=== PATIENT | male | born 1945 | race Caucasian/White ===

== ENCOUNTER 2023-08-15 12:38 | Emergency (ER) | payer MEDICARE, OTHER, SELFPAY ==
[2023-08-15 12:40] VITALS: BP 133/68
[2023-08-15 12:44] VITALS: BP 141/122
[2023-08-15 12:45] VITALS: BP 133/68
[2023-08-15 12:52] VITALS: BMI 24.2
[2023-08-15 13:00] VITALS: BP 114/65
--- NOTE | 2023-08-15 13:53 | ED.GENMED ---
History of Present Illness
General
Chief Complaint: Male Genito-Urinary Symptoms
Source: patient and family
Time Seen by Provider: 08/15/23 13:25
Travel History
Have you had any contact with someone who has COVID-19?: No
Do you have any symptoms of coronavirus? Fever > 100 degrees, chills, cough, shortness of breath, sore throat, loss of taste or smell, muscle aches, or headache?: No
History of Present Illness
History of Present Illness:
78-year-old male with past medical history of PE, COPD, hyperlipidemia, status post suprapubic tube placement and chronic UTIs presenting the emergency department for evaluation after he was having reported bleeding from the tip of the penis
following suprapubic catheter change earlier today. EMS reports that the bleeding had subsided upon them bringing the patient to the emergency department. Patient states that he has no concerns at this time and otherwise feels well. Patient
denies any fevers or infectious symptoms, chest pain, shortness of breath or any other concerns at this time.
Past History
Past History
ED Past Medical History: COPD, Hypercholesterolemia, Other (Pulmonary embolism) and Other (Ulcerative colitis)
ED Past Surgical History: Bowel resection, Orthopedic and Urological
Social History
Tobacco: Non-smoker
Alcohol: None
Drug: None
Personal:
Living: with family
Review of Systems
Review of Systems
All Other Systems: ROS reviewed and negative except as documented in HPI and ROS
Phy Exam
Physical Exam
Physical Exam:
GENERAL: Alert , in no apparent distress, smiling and pleasant
EYE: clear conjunctiva b/l
HEAD: NCAT
ENT: o/p clr, mmm.
CARDIAC: Regular rate and rhythm .
LUNGS: Clear breath sounds bilaterally, no acute respiratory distress, no wheezes/rales/rhonchi
ABDOMEN: Soft, without focal tenderness, no r/g, no cvat, suprapubic tube in place without any surrounding bleeding, there is pink-tinged urine within the Langley bag however there is clear yellow urine within the tubing leading to the Langley bag.
Genitourinary: Moderate amount of blood with in the patient's diaper but this all appears dried and without any active bleeding. There is hypospadias and blood at the tip of the urethra however no active bleeding.
NEUROLOGICAL: Alert and oriented
SKIN: Warm and dry, skin intact.
MUSCULOSKELETAL: well perfused.
PSYCH: Normal and appropriate interaction.
Scores
Heart Failure Risk
Heart Failure Risk Score: Not Applicable
Heart Score for Chest Pain Patients
STEMI patient?: Not applicable
Withdrawal Assessment of Alcohol
Withdrawal Assessment Completed?: Not applicable
Course
Orders/Labs/Results
Orders:
Orders
08/15/23 13:58
Complete Blood Count/With Diff Urgent
Prothrombin Time Urgent
Abnormal Lab Results
08/15/23
13:58
WBC 11.1 H 10^3/uL
(4.8-10.8)
RBC 4.52 L 10^6/uL
(4.70-6.10)
Hgb 12.6 L g/dL
(13.0-18.0)
Hct 38.2 L %
(39.0-52.0)
RDW 14.7 H %
(11.5-14.5)
Abs Immat Gran (auto) 0.1 H 10^3/uL
(0-0.05)
Absolute Neuts (auto) 9.3 H 10^3/uL
(1.4-6.5)
Absolute Lymphs (auto) 1.0 L 10^3/uL
(1.2-3.4)
Absolute Monos (auto) 0.7 H 10^3/uL
(0.1-0.6)
Neutrophils % 83.2 H %
(42.2-75.2)
Lymphocytes % 9.2 L %
(20.5-51.1)
PT 17.6 H Sec
(11.4-14.6)
08/15/23 13:58
Vital Signs
Initial and Last Documented VS:
Initial Vital Signs
Temp Pulse Resp BP Pulse Ox
98.2 F 79 18 133/68 97
08/15/23 12:40 08/15/23 12:40 08/15/23 12:40 08/15/23 12:40 08/15/23 12:40
Last Documented Vital Signs
Temp Pulse Resp BP Pulse Ox
98.2 F 67 16 114/65 97
08/15/23 12:40 08/15/23 14:45 08/15/23 14:45 08/15/23 13:00 08/15/23 14:45
MDM/Problems Addressed
Differential Diagnosis Includes:
Supratherapeutic INR, bleeding secondary to catheter change, less likely infectious etiology
MDM/Problems Addressed:
78-year-old male present emergency department for evaluation after he experienced bleeding from the tip of his penis following a suprapubic catheter change. Patient is on Coumadin and is reportedly compliant with this. Patient unsure of last INR.
I spoke to patient's daughter who confirms history and states they were most concerned due to the amount of bleeding and the fact that patient is anticoagulated. I will check a hemoglobin and a INR prior to discharge. Patient not exhibiting any
signs of infection at this time and does not have any fevers.
Chronic conditions affecting care: Other (Chronic urinary tract infection/suprapubic catheter)
*Pulse Oximetry
Patient hypoxic: no
*Critical Care Note
Total Time (30-74mins, 75-104mins- exclusive of procedures): Not Applicable
Data Reviewed
Review of Other/Old Records Reveals: Records
Patient Management
Escalation/DeEscalation of care consider admission/obs:
Patient's lab work reassuring. Hemoglobin greater than 12 and INR is actually slightly subtherapeutic at 1.5. Patient's daughter notes that about 2 weeks ago patient's INR was too high so they have been changing his medication around a little bit.
Daughter put in a call to patient's urologist and they can follow-up as an outpatient as needed. Aware of return precautions to ER but otherwise stable for discharge home.
ED Attending Note
-
Portions of this chart may have been created with voice recognition software.� Occasional wrong word or��sound alike� substitutions may have occurred due to the inherent limitations of voice recognition software.
Discharge Plan
Departure
Patient Disposition: Home (Routine Discharge)
Date of Disposition: 08/15/23
Time of Disposition: 14:28
Patient with high blood pressure during this ER visit?: No
Discharge Problem:
Hematuria
Instructions: Blood in the Urine (Hematuria), Adult (DC)
Prescriptions:
No Action
cephalexin 500 MG capsule
500 mg PO BID Qty: 14 0RF
Referrals:
Ankita Amos CRNP [Family Provider] -
Interventions
Interventions:
*Risk Screen - Suicide Last Done: 08/15/23 12:40
*General Assessment Last Done: 08/15/23 12:40
*Neglect/Abuse Screening Last Done: 08/15/23 12:40
ED-Male Genitourinary Assessment Last Done: 08/15/23 12:55
[2023-08-15 14:09] LABS: % Basophils 0.5 % (0-2); % Eosinophils 0.7 % (0-6); % Immature Granulocytes 0.5 % (0-0.5); % Lymphocytes 9.2 % (20.5-51.1); % Monocytes 5.9 % (1.7-9.3); % Neutrophils 83.2 % (42.2-75.2); Absolute Basophils 0.1 10^3/uL (0-0.2); Absolute Eosinophils 0.1 10^3/uL (0-0.7); Absolute Immature Granulocytes 0.1 10^3/uL (0-0.05); Absolute Monocytes 0.7 10^3/uL (0.1-0.6); Absolute Neutrophils 9.3 10^3/uL (1.4-6.5); Hematocrit 38.2 % (39.0-52.0); Hemoglobin 12.6 g/dL (13.0-18.0); Mean Corpuscular Hgb 27.9 pg (27.0-31.0); Mean Corpuscular Volume 84.5 fL (80.0-94.0); Mean Platelet Volume 9.9 fL (7.4-10.4); Nucleated Red Blood Cells % 0 % (-); Platelet Count 186 10^3/uL (130-400); Red Blood Cell Count 4.52 10^6/uL (4.70-6.10); Red Cell Dist. Width 14.7 % (11.5-14.5); White Blood Cell Count 11.1 10^3/uL (4.8-10.8)
[2023-08-15 14:20] LABS: INR 1.46; PT 17.6 Sec (11.4-14.6)
== END 2023-08-15 16:01 | disposition home or self-care (01) ==
LOC: EMR 12:38
PROVIDERS: Physician Assistant Medical; EMERGENCY PHYSICIAN Emergency Medicine; FAMILY PHYSICIAN Nurse Practitioner Family
DX: R31.9 Hematuria, unspecified (principal); N39.0 Urinary tract infection, site not specified; Z79.01 Long term (current) use of anticoagulants
CPT/HCPCS: 99283; 85025; 85610

== ENCOUNTER 2023-08-16 01:55 | Inpatient (IN) | payer MEDICARE, OTHER, SELFPAY ==
[2023-08-15 22:10] VITALS: BP 103/58; BMI 23.9
[2023-08-15 22:12] VITALS: BP 103/58
[2023-08-15 22:27] LABS: % Basophils 0.4 % (0-2); % Eosinophils 0.7 % (0-6); % Immature Granulocytes 0.3 % (0-0.5); % Lymphocytes 12.4 % (20.5-51.1); % Monocytes 7.9 % (1.7-9.3); % Neutrophils 78.3 % (42.2-75.2); Absolute Eosinophils 0.1 10^3/uL (0-0.7); Absolute Lymphocytes 1.2 10^3/uL (1.2-3.4); Absolute Monocytes 0.7 10^3/uL (0.1-0.6); Absolute Neutrophils 7.3 10^3/uL (1.4-6.5); Hematocrit 35.6 % (39.0-52.0); Hemoglobin 11.9 g/dL (13.0-18.0); Mean Corp Hgb Conc. 33.4 g/dL (33.0-37.0); Mean Corpuscular Hgb 27.6 pg (27.0-31.0); Mean Corpuscular Volume 82.6 fL (80.0-94.0); Nucleated Red Blood Cells % 0 % (-); Platelet Count 196 10^3/uL (130-400); Red Blood Cell Count 4.31 10^6/uL (4.70-6.10); Red Cell Dist. Width 14.6 % (11.5-14.5); White Blood Cell Count 9.4 10^3/uL (4.8-10.8)
[2023-08-15 22:41] LABS: INR 1.55; PT 18.4 Sec (11.4-14.6)
[2023-08-15 22:44] LABS: ALT (SGPT) 19 U/L (0-50); AST (SGOT) 28 U/L (17-59); Albumin 3.7 g/dl (3.5-5.0); Alkaline Phosphatase 78 U/L (38-126); Blood Urea Nitrogen 34 mg/dl (9-20); Carbon Dioxide 25 mmol/L (22-30); Chloride 102 mmol/L (98-107); Estimated Creatinine Clearance 63 ml/min; Glucose 129 mg/dl (70-99); Potassium 4.6 mmol/L (3.5-5.1); Sodium 135 mmol/L (135-145); Total Bilirubin 0.9 mg/dl (0.2-1.3); Total Protein 6.3 g/dl (6.3-8.2); eGFR > 60.00
[2023-08-15 23:00] VITALS: BP 85/54
[2023-08-15 23:01] VITALS: BP 87/53
[2023-08-16] VITALS (16 sets, daily range): BP systolic 87–134; BP diastolic 48–80; BMI 22.5
[2023-08-16] MEDS: NSS 1000 IV ×3 (00:04→17:07)
--- NOTE | 2023-08-16 00:25 | ED.GENMED ---
History of Present Illness
General
Chief Complaint: Male Genito-Urinary Symptoms
Source: patient
Exam Limitations: none
Time Seen by Provider: 08/15/23 23:32
Nursing documentation reviewed up to this point in time: agreed with
Travel History
Have you had any contact with someone who has COVID-19?: No
Do you have any symptoms of coronavirus? Fever > 100 degrees, chills, cough, shortness of breath, sore throat, loss of taste or smell, muscle aches, or headache?: No
History of Present Illness
History of Present Illness:
78-year-old male presents emergency department complaining of syncope episode, and hematuria. He has a suprapubic catheter but was bleeding from his penis. When he stands he has bleeding.
Past History
Past History
ED Past Medical History: COPD, Hypercholesterolemia, Other (Pulmonary embolism) and Other (Ulcerative colitis)
ED Past Surgical History: Bowel resection, Orthopedic and Urological
Social History
Tobacco: Non-smoker
Alcohol: None
Drug: None
Personal:
Living: with family
Review of Systems
Review of Systems
Allergies reviewed?: Yes
All Other Systems: Not applicable
Constitutional: Reports no symptoms
EENT: Reports no symptoms
Respiratory: Reports no symptoms
Cardiac: Reports syncope
ABD/GI: Reports no symptoms
: Reports bleeding
Musculoskeletal: Reports no symptoms
Skin: Reports no symptoms
Neurological: Reports no symptoms
Endocrine: Reports no symptoms
Hematologic/Lymphatic: Reports no symptoms
Psychiatric: Reports no symptoms
Phy Exam
Physical Exam
Physical Exam:
Physical Exam
General: Blood pressure 87/53
Neck: supple. no meningeal signs. normal posterior pharynx
Heart: s1/s2 regular rate and rhythm, no murmur. equal radial
pulses.
HEENT: Pupils equal round reactive to light, EOMI
Lungs: no acute respiratory distress. clear bilaterally
Abdomen: normal bowel sounds. not tender. no CVAT, : suprapubic Langley catheter, dried blood at urethral meatus
Neuro: alert and oriented. no focal neurological deficits cranial nerves II through XII intact
Skin: no rash
Psychiatric: well kept. interactive and cooperative
Extremities: no edema. no calf tenderness. negative homans. good distal pulses
Course
Orders/Labs/Results
Orders:
Orders
08/15/23 22:14
Electrocardiogram (*1) Urgent
Reason for Study: Syncope
08/15/23 22:17
EKG- Treatment ONCE
08/15/23 22:21
Type+Screen Urgent
Complete Blood Count/With Diff Urgent
Comprehensive Metabolic Panel Urgent
PT/INR [Prothrombin Time] Urgent
08/16/23 00:01
0.9% Sodium Chloride 1000 ml [Nss] 1,000 ml IV BOLUS
Abnormal Lab Results
08/15/23
22:21
RBC 4.31 L 10^6/uL
(4.70-6.10)
Hgb 11.9 L g/dL
(13.0-18.0)
Hct 35.6 L %
(39.0-52.0)
RDW 14.6 H %
(11.5-14.5)
Absolute Neuts (auto) 7.3 H 10^3/uL
(1.4-6.5)
Absolute Monos (auto) 0.7 H 10^3/uL
(0.1-0.6)
Neutrophils % 78.3 H %
(42.2-75.2)
Lymphocytes % 12.4 L %
(20.5-51.1)
PT 18.4 H Sec
(11.4-14.6)
BUN 34 H mg/dl
(9-20)
Glucose 129 H mg/dl
(70-99)
08/15/23 22:21
08/15/23 22:21
Vital Signs
Initial and Last Documented VS:
Initial Vital Signs
Temp Pulse Resp BP Pulse Ox
97.7 F 83 16 103/58 99
08/15/23 22:10 08/15/23 22:10 08/15/23 22:10 08/15/23 22:10 08/15/23 22:10
Last Documented Vital Signs
Temp Pulse Resp BP Pulse Ox
97.7 F 74 16 87/53 94
08/15/23 22:10 08/15/23 23:45 08/15/23 23:45 08/15/23 23:01 08/15/23 23:45
MDM/Problems Addressed
Differential Diagnosis Includes:
Syncope, hematuria, dysrhythmia
MDM/Problems Addressed:
78-year-old male with hematuria, syncope, anticoagulation state. Discussed with Dr. Joe, who recommends n.p.o. and he will scope in a.m. Hold warfarin.
Chronic conditions affecting care: Other (Prior PE, suprapubic catheter)
Acute Exacerbation and/or Progression of Chronic Illness: Other (Anticoagulation, suprapubic catheter)
*Pulse Oximetry
Patient hypoxic: no
*EKG
Interpreted by ED Provider?: Yes
EKG Intrepretation Date: 08/16/23
EKG Intrepretation Time: :24
Interpretation: abnormal
Comparison EKG: no comparison EKG present
Heart Rate: 79
Rate: normal
Rhythm: sinus
[place]: left axis deviation
Interval: normal interval
QRS Pattern: right bundle branch block
Ischemia: no ischemia
*[employer] Interpretation
Rate: normal
Interpretation: normal
Heart Rate: 78
Rhythm: sinus
*Critical Care Note
Total Time (30-74mins, 75-104mins- exclusive of procedures): 30
comment:
Critical care statement: A total of 30 minutes of critical care time was provided for this patient. This includes management of unstable vital signs, evaluation of the patient at bedside, reviewing the patient's pertinent medical records, discussion
with consultants, review of old EKGs and review of pertinent medical records. This time with separate from time utilized to perform the aforementioned documented procedures
Data Reviewed
Review of Other/Old Records Reveals: Labs
Patient Management
Social determinants of health affecting care: Living situation
Discussion with other providers: Hospitalist and Restaurant Area Director (Urology Dr. Joe)
Escalation/DeEscalation of care consider admission/obs:
Admit indicated
ED Attending Note
-
Portions of this chart may have been created with voice recognition software.� Occasional wrong word or��sound alike� substitutions may have occurred due to the inherent limitations of voice recognition software.
Discharge Plan
Departure
Patient Disposition: Admit
Date of Disposition: 08/16/23
Time of Disposition: 00:30
Admit to: IMU
Presentation/result/management discussed w/ accepting MD/DO: Hospitalist
Patient with high blood pressure during this ER visit?: No
Condition: Fair
Discharge Problem:
Hematuria, Syncope
Prescriptions:
No Action
cephalexin 500 MG capsule
500 mg PO BID Qty: 14 0RF
Referrals:
Ankita Amos CRNP [Family Provider] -
Interventions
Interventions:
*Risk Screen - Suicide Last Done: 08/15/23 22:10
*General Assessment Last Done: 08/15/23 22:10
*Neglect/Abuse Screening Last Done: 08/15/23 22:10
*ED COVID-19 Vaccine History Last Done: 08/15/23 22:10
ED-Male Genitourinary Assessment Last Done: 08/15/23 23:07
--- NOTE | 2023-08-16 01:41 | HPS.HSE ---
Family Physician
-
Family Physician: Ankita Amos
Chief Complaint
-
Hematuria
History of Present Illness
Patient is a 78y M with PMH significant for COPD, cervical spinal stenosis and chronic SPC who presents to ED complaining of bleeding from the urethra. History obtained from patient and family at the bedside. Patient had monthly suprapubic
catheter change done today. VN reported that he had some bladder 'spasms' during the exchange. Daughter noted lack of urine output following the procedure and spoke with VN via phone. As directed, daughter deflated balloon and then re-inflated
the balloon. A singular clot was noted in the tubing, followed by return of clear urine. Shortly thereafter, patient noted blood in his diaper / coming from the urethra. Patient presented to the ED for further evaluation.
In the ED, there was no evidence of ongoing bleeding and labs, etc appeared unremarkable. Patient was discharged to home.
Shortly after his return home, he stood to go the bathroom and again noted passage of a large amount of blood from the urethra. Daughter notes that patient then became lightheaded and clammy and appeared that he might pass out. He did not lose
consciousness.
EMS was called and patient returned to the ED for further evaluation.
Patient now noted to be more hypotensive. He is currently resting comfortably in the ED.
Patient is on chronic anticoagulation for prior history of PE. His last dose of Coumadin was this evening.
Medical History
Past Medical History
Past Medical History: Reports Other
Additional Past Medical History:
COPD
History of DVT / PE
Cervical Spinal Stenosis
Ambulatory Dysfunction
Chronic Suprapubic Catheter
Ulcerative Colitis
Past Surgical History: Reports Other
Additional Past Surgical History:
Partial Bowel Resection
Cervical Spinal Fusion
SPC Placement
Social History
Tobacco: Former Smoker (Quit smoking 6 years ago. > 50 pack years total use.)
Alcohol: Occasional
Drug: None
Family History
Family History: Other (Father: Colon Cancer)
Allergies / Home Medications
Allergies reflects when Allergies were last updated in [facility].
Home Medications with original date entered in [facility]
Allergy/Medication List:
Allergies
Allergy/AdvReac Type Severity Reaction Status Date / Time
No Known Allergies Allergy Unverified 04/29/21 11:02
Home Medications
albuterol sulfate 2.5 mg/3 mL (0.083 %) solution for nebulization 2.5 mg inhalation BID 08/16/23
atorvastatin 40 mg tablet 40 mg PO DAILY 08/16/23
azithromycin 250 mg tablet 250 mg PO DAILY 08/16/23
baclofen 10 mg tablet 10 mg PO HS 08/16/23
baclofen 10 mg tablet 15 mg PO BID@0800,1200 08/16/23
baclofen 20 mg tablet 20 mg PO QPM 08/16/23
budesonide 0.5 mg/2 mL suspension for nebulization 0.5 mg inhalation BID 08/16/23
pantoprazole 40 mg tablet,delayed release 40 mg PO DAILY 08/16/23
tamsulosin 0.4 mg capsule 0.4 mg PO HS 08/16/23
warfarin 4 mg tablet 4 mg PO DAILY 08/16/23
Review of Systems
-
History Source: Patient and Family
A 12 point ROS was completed and negative except as noted: Yes
Constitutional: Reports Fatigue; Denies Fever or Chills
EENT: Denies Sore Throat
Respiratory: Denies Cough or Trouble Breathing
Cardiac: Denies Chest Pain or Palpitations
Abdomen/GI: Denies Abdominal Pain, Nausea, Vomiting or Diarrhea
: Reports Bleeding; Denies Dysuria
Musculoskeletal: Denies Joint Pain or Edema
Neurological: Reports Dizzy
Psych: Denies Depression or Anxiety
Physical Exam
Vital Signs
Vital Signs
Temp Pulse Resp BP Pulse Ox
97.7 F 69 15 91/53 96
08/15/23 22:10 02/24/24 01:00 08/16/23 01:00 08/16/23 01:00 08/16/23 01:00
Physical Exam
General: Other (78y M in no acute distress.)
HEENT: Moist mucous membranes and PERRLA
Respiratory: Other (Decreased bilaterally. No W/R/R.)
Cardiac: S1/S2 and Regular Rhythm; No Murmur
GI: Soft, Non Tender, Non Distended and Normal Bowel Sounds
Genito-urinary: Other (SPC in place with connie colored urine in device. Hypospadias with evidence of recent bleeding but no active bleeding.)
Musculoskeletal: No Clubbing, No Cyanosis and No Edema
Neuro: AO x 3
Laboratory Results
-
08/15/23 22:21
08/15/23 22:21
Laboratory Results
PT 18.4 Sec (11.4-14.6) H 08/15/23 22:21
INR 1.55 08/15/23 22:21
Total Bilirubin 0.9 mg/dl (0.2-1.3) 08/15/23 22:21
AST 28 U/L (17-59) 08/15/23 22:21
ALT 19 U/L (0-50) 08/15/23 22:21
Alkaline Phosphatase 78 U/L (38-126) 08/15/23 22:21
Impression/Plan
-
A/P: Patient is a 78y M with PMH significant for cervical stenosis, ambulatory dysfunction and chronic SPC who presents to ED for evaluation of bleeding from the urethra.
Urethral Bleeding
Chronic Suprapubic Catheter
Acute Blood Loss Anemia
Hypotension secondary to the above
- Admit for further evaluation and treatment.
- Continue IVF support for BP / hypovolemia.
- Follow H&H and consider transfusion if necessary.
- Transfusion +/- pressor support if needed to maintain perfusion / BP.
- Bleeding seems likely secondary to trauma from SPC placement / exchange. ? balloon inflated in proximal urethra based on description of events?
- Maintain current SPC ad flush as needed.
- Follow for any evidence of recurrent / continued bleeding from urethra. Seems to be position dependent and most evident when upright as in standing or seated.
- Urology evaluation for probable cystoscopy in the AM.
- Hold warfarin.
History of DVT / PE
DVT Prophylaxis
- Hold warfarin acutely given bleeding as noted above.
- INR = 1.55 with most recent dose of warfarin being late this evening.
- Follow daily INR. Resume warfarin after acute bleeding issues are definitively addressed.
- SCDs for now for prophylaxis.
COPD without Acute Exacerbation
- Stable. Continue budesonide BID and daily azithromycin.
- DuoNebs PRN.
Ulcerative Colitis
- Stable. Most recent flare was about 2 months ago.
- Not apparently on any maintenance medications.
- Follow for any new symptoms.
Cervical Spinal Stenosis
Ambulatory Dysfunction
- Stable. 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
- Continue usual baclofen regimen.
- PT / OT evaluations once hemodynamically stable.
Code Status: Full
--- NOTE | 2023-08-16 03:56 | CONS.URO ---
Consultation
-
Performing Provider: Michaelafer
Reason for Consultation: Hematuria
Medical History
History of Present Illness
78M known to urology at [place]
History of urinary retention and suprapubic tube placed about 1 year ago
AC on coumadin
Presented to the ER twice tonight for blood per meatus after his SPT was exchanged earlier today
Patient's daughter noted poor drainage and was instructed to reposition the baloon
After doing so he began to have bleeding from his urethra when standing
After first visit to ER this started again with reported large amount of blood
No prior issues with gross hematuria, bladder cancer, urethral bleding, pelvic pain
Past Medical History
Past Medical History: Other (COPD History of DVT / PE Cervical Spinal Stenosis Ambulatory Dysfunction Chronic Suprapubic Catheter Ulcerative Colitis)
Past Surgical History: Urological (Sp tube) and Other (Partial Bowel Resection Cervical Spinal Fusion)
Social History
Alcohol: Occasional
Drug: None
Allergies/Home Medications
Allergies
Allergy/AdvReac Type Severity Reaction Status Date / Time
No Known Allergies Allergy Unverified 04/29/21 11:02
Home Medications
Medication Instructions Recorded Confirmed Type
albuterol sulfate 2.5 mg/3 mL 2.5 mg inhalation BID 08/16/23 08/16/23 History
(0.083 %) solution for nebulization
atorvastatin 40 mg tablet 40 mg PO DAILY 08/16/23 08/16/23 History
azithromycin 250 mg tablet 250 mg PO DAILY 08/16/23 08/16/23 History
baclofen 10 mg tablet 10 mg PO HS 08/16/23 08/16/23 History
baclofen 10 mg tablet 15 mg PO BID@0800,1200 08/16/23 08/16/23 History
baclofen 20 mg tablet 20 mg PO QPM 08/16/23 08/16/23 History
budesonide 0.5 mg/2 mL suspension 0.5 mg inhalation BID 08/16/23 08/16/23 History
for nebulization
pantoprazole 40 mg tablet,delayed 40 mg PO DAILY 08/16/23 08/16/23 History
release
tamsulosin 0.4 mg capsule 0.4 mg PO HS 08/16/23 08/16/23 History
warfarin 4 mg tablet 4 mg PO DAILY 08/16/23 08/16/23 History
Physical Exam
Vital Signs
Vital Signs
Temp Pulse Resp BP Pulse Ox
97.7 F 74 16 107/57 95
08/15/23 22:10 08/16/23 03:00 08/16/23 03:00 08/16/23 03:00 08/16/23 03:00
Lab / Testing Results
Laboratory Results
08/15/23 22:21
08/15/23 22:21
Physical Exam
General: Well Developed, Well Nourished and No Apparent Distress
Respiratory: Clear and Non Labored Respirations
GI: Soft and Non Tender
Genito-urinary: Suprapubic Tube (14fr tube in place without significant hematuria) and Other (no active bleeding from urethral meatus. Meatus erosion from prior chronic bowens)
Neuro: Awake and Alert
Psych: Calm
Assessment / Plan
-
78M with sudden onset bleeding from urethra after routine suprapubic tube change
- Given timing and nature of bleeding, it is most likely the catheter balloon was inflated within the prostate during suprapubic tube change, causing poor drainage and subsequent bleeding when it was repositioned
- Hold warfarin
- Bedrest today. If bleeding remains minimal tomorrow, trial of ambulation to see if bleeding self-resolved
- If bleeding is persistent and does not stop spontaneously, will consider cystoscopy and fulguration
[2023-08-16 05:50] LABS: Hematocrit 30.5 % (39.0-52.0); Hemoglobin 10.3 g/dL (13.0-18.0); Mean Corp Hgb Conc. 33.8 g/dL (33.0-37.0); Mean Corpuscular Hgb 28.1 pg (27.0-31.0); Mean Corpuscular Volume 83.3 fL (80.0-94.0); Mean Platelet Volume 10.1 fL (7.4-10.4); Platelet Count 177 10^3/uL (130-400); Red Blood Cell Count 3.66 10^6/uL (4.70-6.10); Red Cell Dist. Width 14.8 % (11.5-14.5); White Blood Cell Count 6.7 10^3/uL (4.8-10.8)
[2023-08-16 05:59] LABS: INR 1.88; PT 21.5 Sec (11.4-14.6)
[2023-08-16 06:03] LABS: Blood Urea Nitrogen 32 mg/dl (9-20); Calcium 8.2 mg/dl (8.4-10.2); Carbon Dioxide 25 mmol/L (22-30); Chloride 108 mmol/L (98-107); Estimated Creatinine Clearance 71 ml/min; Glucose 100 mg/dl (70-99); Iron 27 ug/dl (49-181); Potassium 4.3 mmol/L (3.5-5.1); Sodium 135 mmol/L (135-145); eGFR > 60.00
[2023-08-16 06:11] LABS: Percent Saturation 9 % (20-50); Total Iron Binding Capacity 277 ug/dl (261-462)
[2023-08-16 06:38] LABS: Ferritin 29.2 ng/ml (17.9-464.0)
--- NOTE | 2023-08-16 07:37 | W.PN.HOSP.TC ---
Today's Communication/Plan
-
Monitor H&H
replet calcium
Vit D supplementation
bed rest as per Urology
Iron supplementation
Assessment / Plan
Assessment / Plan
Physical Exam
General: no acute distress appears comfortable at this time.
HEENT: Moist mucous membranes PERRLA hard of hearing
Respiratory: clear to auscultation bilateral no crackles wheezing rhonchi
Cardiac: S1/S2 and Regular Rhythm; No Murmur
GI: Soft, Non Tender, Non Distended and Normal Bowel Sounds
Genito-urinary: SPC in place with connie colored urine in device. Hypospadia
Musculoskeletal: No Clubbing, No Cyanosis and No Edema
Neuro: AO x 3
A/P:� Patient is a 78y M with PMH significant for cervical stenosis, ambulatory dysfunction and chronic SPC who presents� to ED for evaluation of bleeding from the urethra.
Urethral Bleeding
Chronic Suprapubic Catheter
Acute Blood Loss Anemia
Hypotension secondary to the above
�- Continue IVF support for BP / hypovolemia since resolved
�- Monitor H&H, transfuse goal Hgb>8 with concern active bleeding
�-Urology eval appreciated cont Hold warfarin, bedrest today, if bleeding minimal, trial ambulation tomorrow, if bleeding persists, possible cystoscopy and fulguration
History of DVT / PE
DVT Prophylaxis
�- Hold warfarin acutely given bleeding as noted above.
�- Daily INR.
�- SCDs for now for prophylaxis.
COPD without Acute Exacerbation
�- Stable.� Continue budesonide BID and daily azithromycin.
�- DuoNebs PRN.
Ulcerative Colitis
�- Stable.� Most recent flare was about 2 months ago.
�- Not apparently on any maintenance medications.
�- Follow for any new symptoms.
Cervical Spinal Stenosis
Ambulatory Dysfunction
�- Stable.� Chronic gait dysfunction secondary to prior cord compression / spasticity / etc.
�- Continue usual baclofen regimen.
�- PT / OT evaluations once hemodynamically stable.
Iron deficiency
Anemia of chronic disease
-IV iron supplementation
Hypocalcemia
-monitor and replete as necessary
Vit d deficiency
-Vit D supplementation started
Code Status:� Full
Regular Diet
Discussed with patient, her daughter, Urology, and nurse
I spent a total of 53 minutes with the patient or on the floor. More than 50% of this time involved counseling and coordination of care.
Anticipated Discharge: 24 - 48 hours
Subjective/Interval History
-
Date of Service: August 16, 2023
Seen and examined at bedside in no acute distress resting comfortably in bed. Denies any new acute issues at this time. Reports feeling well overall. Daughter Leida present during evaluation.
Objective Data
-
Labs:
Laboratory Results
08/15/23 08/16/23
22:21 05:38
WBC 9.4 6.7
Hgb 11.9 L 10.3 L
Hct 35.6 L 30.5 L
Plt Count 196 177
PT 18.4 H 21.5 H
INR 1.55 1.88
Sodium 135 135
Potassium 4.6 4.3
Chloride 102 108 H
Carbon Dioxide 25 25
BUN 34 H 32 H
Creatinine 0.9 0.8
Glucose 129 H 100 H
Calcium 9.0 8.2 L
Total Bilirubin 0.9
AST 28
ALT 19
Alkaline Phosphatase 78
Vital Signs:
Vital Signs
Temp Pulse Resp BP Pulse Ox
97.7 F 78 16 115/80 97
08/15/23 22:10 08/16/23 06:00 08/16/23 06:00 08/16/23 06:00 08/16/23 06:00
I&O
08/15/23 08/16/23 08/17/23
06:59 06:59 06:59
Output Total 450 / 450
Balance -450 / -450
[2023-08-16] MEDS: PULMICORT 0.5 MG INH ×2 (07:45→20:52)
[2023-08-16] MEDS: DUONEB 3 ML INH ×2 (07:46→18:00)
[2023-08-16] MEDS: LIORESAL 15 MG PO ×2 (08:31→11:48)
[2023-08-16] MEDS: PROTONIX 40 MG PO (08:32)
[2023-08-16] MEDS: ZITHROMAX 250 MG PO (08:32)
[2023-08-16] MEDS: LIPITOR 40 MG PO (08:32)
[2023-08-16 11:25] LABS: Vitamin D, 25-OH*** 16.2 ng/mL (30-80)
[2023-08-16] MEDS: OSCAL 500 + D 500 MG PO (11:47)
[2023-08-16] MEDS: FERRLECIT 110 MG IV (14:16)
--- NOTE | 2023-08-16 16:06 | PTCARENOTE ---
Pt presents as assessed. Aox3 and pleasant, [place]. NSR on tele monitor. VSS. Lungs clear and sats mid to high 90's on RA. Suprapubic tube draining yellow urine- no signs of bleeding noted. Pt ordered bedrest- Q2T maintained. IVF infusing as ordered.
Tolerating diet. Bed alarm in place for safety. Call fonseca within reach.
[2023-08-16] MEDS: LIORESAL 20 MG PO (17:07)
[2023-08-16] MEDS: FLOMAX 0.400000000000000022 MG PO (20:41)
[2023-08-17] VITALS (12 sets, daily range): BP systolic 88–153; BP diastolic 37–85
[2023-08-17] MEDS: NSS 1000 IV ×2 (01:41→11:47)
--- NOTE | 2023-08-17 03:22 | PTCARENOTE ---
Pt sleeping well overnight. Very pleasant. AAOx3. Denies pain or discomfort. SPT intact draining yellow urine. No bleeding noted. VSS. Afebrile. SR on CM. No change from earlier assessment. Need to continue to educate on turning schedule and
purpose. Pt more comfortable on his back. Skin intact. IVF's continue infusing as ordered. Call fonseca remains within reach. Will continue to monitor.
[2023-08-17 04:40] LABS: Hematocrit 25.8 % (39.0-52.0); Hemoglobin 8.7 g/dL (13.0-18.0); Mean Corp Hgb Conc. 33.7 g/dL (33.0-37.0); Mean Corpuscular Hgb 28.1 pg (27.0-31.0); Mean Corpuscular Volume 83.2 fL (80.0-94.0); Mean Platelet Volume 10.5 fL (7.4-10.4); Platelet Count 145 10^3/uL (130-400); Red Cell Dist. Width 15.2 % (11.5-14.5); White Blood Cell Count 5.3 10^3/uL (4.8-10.8)
[2023-08-17 04:57] LABS: INR 1.99; PT 22.5 Sec (11.4-14.6)
[2023-08-17 05:11] LABS: Blood Urea Nitrogen 19 mg/dl (9-20); Calcium 8.2 mg/dl (8.4-10.2); Carbon Dioxide 26 mmol/L (22-30); Chloride 108 mmol/L (98-107); Estimated Creatinine Clearance 93 ml/min; Glucose 97 mg/dl (70-99); Phosphorus 2.9 mg/dl (2.5-4.5); Potassium 4.1 mmol/L (3.5-5.1); Sodium 139 mmol/L (135-145); eGFR > 60.00
--- NOTE | 2023-08-17 07:20 | W.PN.HOSP.TC ---
Today's Communication/Plan
-
Monitor H&H, transfuse goal >7.5 d/t concern active bleeding
replete calcium
Iron supplementation
bed rest as per urology
NPO after midnight in case need for urologic intervention
cont hold warfarin
Assessment / Plan
Assessment / Plan
Physical Exam
General: no acute distress appears comfortable at this time.
HEENT: Moist mucous membranes PERRLA hard of hearing
Respiratory: clear to auscultation bilateral no crackles wheezing rhonchi
Cardiac: S1/S2 and Regular Rhythm; No Murmur
GI: Soft, Non Tender, Non Distended and Normal Bowel Sounds
Genito-urinary: SPC in place with connie colored urine in device. Hypospadia
Musculoskeletal: No Clubbing, No Cyanosis and No Edema
Neuro: AO x 3
A/P:� Patient is a 78y M with PMH significant for cervical stenosis, ambulatory dysfunction and chronic SPC who presents� to ED for evaluation of bleeding from the urethra.
Urethral Bleeding
Chronic Suprapubic Catheter
Acute Blood Loss Anemia
Hypotension secondary to the above
�- Continue IVF support for BP / hypovolemia since resolved
�- Monitor H&H, transfuse goal Hgb>7.5 with concern active bleeding
�-Urology eval appreciated cont Hold warfarin, cont bedrest, trial ambulation tomorrow, npo after midnight possible cystoscopy and fulguration if bleeding returns/worsens
History of DVT / PE
DVT Prophylaxis
�- Hold warfarin acutely given bleeding as noted above.
�- Daily INR.
�- SCDs for now for prophylaxis.
COPD without Acute Exacerbation
�- Stable.� Continue budesonide BID
�- DuoNebs PRN.
- Azithromycin discontinued, per patient/family no longer taking
Ulcerative Colitis
�- Stable.� Most recent flare was about 2 months ago.
�- Not apparently on any maintenance medications.
�- Follow for any new symptoms.
Cervical Spinal Stenosis
Ambulatory Dysfunction
�- Stable.� Chronic gait dysfunction secondary to prior cord compression / spasticity / etc.
�- Continue usual baclofen regimen.
�- PT / OT evaluations once hemodynamically stable.
Iron deficiency
Anemia of chronic disease
-IV iron supplementation
Hypocalcemia
-monitor and replete as necessary
Vit d deficiency
-Vit D supplementation started
Code Status:� Full
Regular Diet
Discussed with patient, her daughter, Urology, and nurse
I spent a total of 53 minutes with the patient or on the floor. More than 50% of this time involved counseling and coordination of care.
Anticipated Discharge: 24 - 48 hours
Subjective/Interval History
-
Date of Service: August 17, 2023
Seen and examined at bedside in no acute distress resting comfortably in bed. Hematuria resolved. Daughter Leida present during evaluation.
Objective Data
-
Labs:
Laboratory Results
08/17/23
04:30
WBC 5.3
Hgb 8.7 L
Hct 25.8 L
Plt Count 145
PT 22.5 H
INR 1.99
Sodium 139
Potassium 4.1
Chloride 108 H
Carbon Dioxide 26
BUN 19
Creatinine 0.6 L
Glucose 97
Calcium 8.2 L
Vital Signs:
Vital Signs
Temp Pulse Resp BP Pulse Ox
98.3 F 76 14 123/61 94
08/17/23 03:28 08/17/23 06:00 08/17/23 06:00 08/17/23 06:00 08/17/23 06:00
I&O
08/16/23 08/17/23 08/18/23
06:59 06:59 06:59
Intake Total 2930 / 2930
Output Total 450 / 450 2500 / 2500
Balance -450 / -450 430 / 430
[2023-08-17] MEDS: LIORESAL 15 MG PO ×2 (07:23→11:47)
[2023-08-17] MEDS: LIPITOR 40 MG PO (07:24)
[2023-08-17] MEDS: ZITHROMAX 250 MG PO (07:24)
[2023-08-17] MEDS: PROTONIX 40 MG PO (07:24)
[2023-08-17] MEDS: VITAMIN D3 (cholecalciferol) 25 MCG PO (07:25)
[2023-08-17] MEDS: PULMICORT 0.5 MG INH ×2 (08:27→20:49)
[2023-08-17] MEDS: DUONEB 3 ML INH (08:27)
--- NOTE | 2023-08-17 11:30 | W.PN.URO.CBU ---
Today's Communication / Plan
-
Continue observation
Ambulate tomorrow
NPO for possible procedure if significant bleeding persists
Assessment / Plan
-
78M with sudden onset bleeding from urethra after routine suprapubic tube change
- Given timing and nature of bleeding, it is most likely the catheter balloon was inflated within the prostate during suprapubic tube change, causing poor drainage and subsequent bleeding when it was repositioned
- Hold warfarin
- Bleeding mostly resolved - some minimal blood per nurse earlier this AM
- Bedrest today with trial of ambulation tomorrow
- If bleeding is persistent and does not stop spontaneously, will consider cystoscopy and fulguration
- NPO at MN in case procedure is necessary
Diagnosis
-
Date of Service: August 17, 2023
-
Patient Diagnosis:
Urethral bleeding
Chronic urinary retention
Post Op Day:
Subjective
-
small amount of urethral bleeding today per nurse
Objective
-
Vital Signs
Temp Pulse Resp BP Pulse Ox
98.4 F 88 18 123/61 95
08/17/23 07:30 08/17/23 08:30 08/17/23 08:30 08/17/23 06:00 08/17/23 08:30
Intake and Output
08/16/23 08/17/23 08/18/23
06:59 06:59 06:59
Intake Total 2930 / 2930
Output Total 450 / 450 2500 / 2500
Balance -450 / -450 430 / 430
Intake:
Oral fluids 780 / 780
IV fluids (Total) 2039
IV piggybacks 110 / 110
Output:
Suprapubic output 450 / 450 2500 / 2500
Laboratory Results
08/17/23 04:30
Physical Exam
-
General - well developed, well nourished, no acute distress
Chest - clear
Abdomen - soft, non-tender, SPT in place clear urine
Genitalia - no blood at meatus, no visible active bleeding
Skin - warm & dry with no rash
Neuro - AOx3, no motor deficits
Extremities - no clubbing, no cyanosis, no edema
[2023-08-17 11:50] LABS: Hematocrit 29.7 % (39.0-52.0)
[2023-08-17] MEDS: FERRLECIT 110 MG IV (14:21)
--- NOTE | 2023-08-17 16:41 | CM ---
CM reviewed medical records. CM met with patient in room. CM confirmed that patient lives with daughter in a two story home. Patient's bedroom is on the first floor, but he needs assistance navigating the stairs and uses a stair glide. Patient also
relies on a walker. Patient has had a history of placement in [facility] and then was transitioned to [facility]. Patient has also beed to [facility].
Patient is active with [facility] for SPC changes once a month. Referral sent via [facility] to [facility].
Patient is active with his PCP. Patient uses [facility] for medication services.
PLAN: Home with [facility]
[2023-08-17] MEDS: LIORESAL 20 MG PO (17:48)
[2023-08-17] MEDS: CALCIUM GLUCONATE 100 IV (17:48)
--- NOTE | 2023-08-17 19:00 | PTCARENOTE ---
report received from apolinar RN. walking rounds completed. Pt resting in bed, AAOX3. [place]. SR on telemetry heart rate 60-80s. pulses palpable. +1 edema in lower extremities. pt on room air, sat 94-96%. lung sounds clear. active bowel sounds, abodmen
round. pt reports has not had bowel movement since friday- attempted to have bowel movement on bedpan but unable. suprapubic catheter draining clear yellow urine. some old bloody drainage from meatus noted. see worklist for full nursing assessment.
pt updated on plan of care and to remain bedrest until am.
[2023-08-17] MEDS: FLOMAX 0.400000000000000022 MG PO (21:08)
[2023-08-18] VITALS (13 sets, daily range): BP systolic 83–135; BP diastolic 38–69; PULSE 90–127; O2SAT 94–95
[2023-08-18 04:38] LABS: Hematocrit 26.3 % (39.0-52.0); Hemoglobin 8.9 g/dL (13.0-18.0); Mean Corp Hgb Conc. 33.8 g/dL (33.0-37.0); Mean Corpuscular Hgb 28.3 pg (27.0-31.0); Mean Corpuscular Volume 83.5 fL (80.0-94.0); Mean Platelet Volume 10.3 fL (7.4-10.4); Platelet Count 143 10^3/uL (130-400); Red Blood Cell Count 3.15 10^6/uL (4.70-6.10); Red Cell Dist. Width 15.4 % (11.5-14.5); White Blood Cell Count 4.9 10^3/uL (4.8-10.8)
[2023-08-18 04:47] LABS: INR 1.72
[2023-08-18 04:55] LABS: Blood Urea Nitrogen 15 mg/dl (9-20); Calcium 8.3 mg/dl (8.4-10.2); Carbon Dioxide 26 mmol/L (22-30); Chloride 110 mmol/L (98-107); Estimated Creatinine Clearance 80 ml/min; Glucose 95 mg/dl (70-99); Magnesium 1.8 mg/dl (1.6-2.3); Phosphorus 3.2 mg/dl (2.5-4.5); Sodium 137 mmol/L (135-145); eGFR > 60.00
--- NOTE | 2023-08-18 06:50 | PTCARENOTE ---
urine clear yellow from suprapubic catheter throughout the night. no drainage from meatus noted.
[2023-08-18] MEDS: PULMICORT 0.5 MG INH ×2 (08:11→20:08)
[2023-08-18] MEDS: DUONEB 3 ML INH ×2 (08:11→20:08)
--- NOTE | 2023-08-18 09:04 | CM ---
Addendum entered by Kayce Marcum 08/18/23 17:08:
Patient accepted by [facility] for follow up in am.
Original Note:
Patient seen at bedside with physician. Patient stated that he lives with his daughter in a 2 story home and states that he has a wheelchair also in addition to the stair glide and walker. Patient has had [facility] in the past, [facility] is not current.
PT/OT in room to start assessment. CM will continue to follow for discharge planning needs.
Plan; home with VN vs SNF pending PT/OT recommendations
--- NOTE | 2023-08-18 09:10 | W.PN.URO.CBU ---
Today's Communication / Plan
-
trial of ambulation
NPO for possible cystoscopy
Assessment / Plan
-
78M with sudden onset bleeding from urethra after routine suprapubic tube change
- Given timing and nature of bleeding, it is most likely the catheter balloon was inflated within the prostate during suprapubic tube change, causing poor drainage and subsequent bleeding when it was repositioned
- Hold warfarin
- Bleeding mostly resolved - no episodes overnight
- Trial of ambulation today
- If bleeding restarts, will proceed with cystoscopy and fulguration
- NPO in case procedure is necessary this afternoon
Diagnosis
-
Date of Service: August 18, 2023
-
Patient Diagnosis:
Urethral bleeding
Chronic urinary retention
Post Op Day:
Subjective
-
No bleeding overnight
Has not ambulated yet
Objective
-
Vital Signs
Temp Pulse Resp BP Pulse Ox
97.9 F 75 18 113/56 94
08/18/23 07:56 08/18/23 08:14 08/18/23 08:14 08/18/23 06:00 08/18/23 08:14
Intake and Output
08/17/23 08/18/23 08/19/23
06:59 06:59 06:59
Intake Total 2930 / 2930
Output Total 2500 / 2500 3300 / 3300
Balance 430 / 430 -3300 / -3300
Intake:
Oral fluids 780 / 780
IV fluids (Total) 2039
IV piggybacks 110 / 110
Output:
Urine, [place] 850 / 850
Suprapubic output 2500 / 2500 2450 / 2450
Laboratory Results
08/18/23 04:25
02/26/24 04:25
Physical Exam
-
General - well developed, well nourished, no acute distress
Chest - clear
Abdomen - soft, non-tender, SPT in place
Genitalia - no blood per meatus
Skin - warm & dry with no rash
Extremities -no edema
[2023-08-18] MEDS: LIORESAL 15 MG PO ×2 (09:16→11:09)
[2023-08-18] MEDS: PROTONIX 40 MG PO (09:16)
[2023-08-18] MEDS: LIPITOR 40 MG PO (09:16)
[2023-08-18] MEDS: VITAMIN D3 (cholecalciferol) 25 MCG PO (09:16)
--- NOTE | 2023-08-18 09:19 | W.PN.HOSP.TC ---
Today's Communication/Plan
-
ambulation and follow bleeding as per urology
transfer out of IMU
Assessment / Plan
Assessment / Plan
pt is a 78 year old male
Acute Blood Loss Anemia due to Urethral Bleeding with Chronic Suprapubic Catheter and subsequent hypotension--has not needed blood transfusion so far--HGB did drop from 12.6 (admission) to 8.9 (currently)--apprec urology--coumadin on hold--ambulate
today
History of DVT/PE/DVT Prophylaxis-�- Hold warfarin acutely given bleeding as noted above- Daily INR�- SCDs for now for prophylaxis.
COPD without Acute Exacerbation�- Stable.� Continue budesonide BID�- DuoNebs PRN- Azithromycin discontinued, per patient/family no longer taking
Ulcerative Colitis- Stable.� Most recent flare was about 2 months ago- Not apparently on any maintenance medications-- Follow for any new symptoms.
Cervical Spinal Stenosis/Ambulatory Dysfunction�- Stable--Chronic gait dysfunction secondary to prior cord compression/spasticity/etc--Continue usual baclofen regimen-- PT/OT evaluations once hemodynamically stable.
Iron deficiency with Anemia of chronic disease--IV iron supplementation
Hypocalcemia--monitor and replete as necessary
Vit D deficiency---Vit D supplementation started
Code Status:� Full
Anticipated Discharge: Within 24 hours
Subjective/Interval History
-
Date of Service: August 18, 2023
pt says urine clear but hasn't gotten up yet
Objective Data
-
Labs:
Laboratory Results
08/18/23
04:25
WBC 4.9
Hgb 8.9 L
Hct 26.3 L
Plt Count 143
PT 20.0 H
INR 1.72
Sodium 137
Potassium 4.0
Chloride 110 H
Carbon Dioxide 26
BUN 15
Creatinine 0.7
Glucose 95
Calcium 8.3 L
Vital Signs:
max temp for 24 hours
08/17/23
19:46
Temp 98.8 F
Vital Signs
Temp Pulse Resp BP Pulse Ox
97.9 F 75 18 113/56 94
08/18/23 07:56 08/18/23 08:14 08/18/23 08:14 08/18/23 06:00 08/18/23 08:14
I&O
08/17/23 08/18/23 08/19/23
06:59 06:59 06:59
Intake Total 2930 / 2930
Output Total 2500 / 2500 3300 / 3300
Balance 430 / 430 -3300 / -3300
Review of Systems
-
All other systems: Reviewed and negative
Physical Exam
-
General: Well Developed, Well Nourished and No Apparent Distress
HEENT: Normocephalic and Atraumatic
Respiratory: Clear to Auscultation; Negative Wheezes or Rhonchi
Cardiac: Regular Rhythm, S1/S2 and Murmur
GI: Soft, Nontender, Normal Bowel Sounds and Distended
Genito-urinary: Clear Urine and Supra Pubic Tube
Musculoskeletal: No Clubbing, No Cyanosis and No Edema
Neuro: Awake and Alert
--- NOTE | 2023-08-18 09:39 | PTCARENOTE ---
pt aaox3. states no pain or sob. states he is hungry and wants to eat. explained plan for npo incase of procedure. pt understands. suprapubic tube in place draining clear yellow. very small amt of serosanguineous drainage noted from meatus of
penis. p/t ambulated in room with pt and is now oob in chair. no bleeding noted
[2023-08-18] MEDS: COLACE 100 MG PO (11:09)
--- NOTE | 2023-08-18 17:22 | PTCARENOTE ---
pt oob to commode formed bowel movement. brb noted on floor and toilet seat from pt penis. Dr Joe notified. ordered for pt to be npo after midnight for poss scope. pt made aware.
[2023-08-18] MEDS: LIORESAL 20 MG PO (18:18)
[2023-08-18] MEDS: FLOMAX 0.400000000000000022 MG PO (19:52)
[2023-08-19] VITALS (19 sets, daily range): BP systolic 89–132; BP diastolic 49–78
--- NOTE | 2023-08-19 00:05 | PTCARENOTE ---
Received pt at start of shift. aaox3, pleasant. Denies pain. Suprapubic cath in place, draining yellow urine with some clots. Penis not actively bleeding but dried blood around it like it may be leaking slowly. VSS. NSR. BLE edema which patient
states is his normal. Daughter Leida updated on phone about changes today and plan for cysto tomorrow. Stated she will call back in the AM for a procedure time.
Pt transferred/downgraded to 3W. Report given. pt stable.
--- NOTE | 2023-08-19 00:23 | PTCARENOTE ---
pt received from IMU with belongings at bedside, hearing aids placed on bench examiner. pt corine, aaox3, VSS, placed on machine steak tenderizer - NSR. suprapubic catheter site c/d/i, draining connie urine. dried blood noted on pt's meatus, no signs of active
bleeding. abdomen firm, bowel sounds present. pt educated on being NPO, verbalizes understanding. pt oriented to room, call fonseca in reach
[2023-08-19 05:41] LABS: Hematocrit 27.5 % (39.0-52.0); Hemoglobin 9.1 g/dL (13.0-18.0); Mean Corp Hgb Conc. 33.1 g/dL (33.0-37.0); Mean Corpuscular Hgb 27.7 pg (27.0-31.0); Mean Corpuscular Volume 83.6 fL (80.0-94.0); Mean Platelet Volume 10.5 fL (7.4-10.4); Platelet Count 152 10^3/uL (130-400); Red Blood Cell Count 3.29 10^6/uL (4.70-6.10); Red Cell Dist. Width 15.4 % (11.5-14.5); White Blood Cell Count 4.5 10^3/uL (4.8-10.8)
[2023-08-19 05:55] LABS: INR 1.43; PT 17.3 Sec (11.4-14.6)
[2023-08-19 06:16] LABS: Blood Urea Nitrogen 14 mg/dl (9-20); Calcium 8.2 mg/dl (8.4-10.2); Carbon Dioxide 27 mmol/L (22-30); Chloride 109 mmol/L (98-107); Estimated Creatinine Clearance 80 ml/min; Glucose 89 mg/dl (70-99); Phosphorus 3.1 mg/dl (2.5-4.5); Potassium 3.9 mmol/L (3.5-5.1); Sodium 136 mmol/L (135-145); eGFR > 60.00
[2023-08-19] MEDS: PULMICORT 0.5 MG INH ×2 (07:55→19:50)
--- NOTE | 2023-08-19 08:06 | W.PN.HOSP.TC ---
Today's Communication/Plan
-
OR today
Assessment / Plan
Assessment / Plan
pt is a 78 year old male
Acute Blood Loss Anemia due to Urethral Bleeding with Chronic Suprapubic Catheter and subsequent hypotension--has not needed blood transfusion so far--HGB did drop from 12.6 (admission) to 8.9 (currently)--apprec urology--coumadin on hold--did well
with ambulation but had bleeding with having a bowel movement--for OR today
History of DVT/PE/DVT Prophylaxis-�- Holding warfarin acutely given bleeding as noted above- Daily INR�- SCDs for now for prophylaxis.
COPD without Acute Exacerbation�- Stable.� Continue budesonide BID�- DuoNebs PRN- Azithromycin discontinued, per patient/family no longer taking
Ulcerative Colitis- Stable.� Most recent flare was about 2 months ago- Not apparently on any maintenance medications-- Follow for any new symptoms.
Cervical Spinal Stenosis/Ambulatory Dysfunction�- Stable--Chronic gait dysfunction secondary to prior cord compression/spasticity/etc--Continue usual baclofen regimen-- PT/OT evaluations once hemodynamically stable.
Iron deficiency with Anemia of chronic disease--IV iron supplementation
Hypocalcemia--monitor and replete as necessary
Vit D deficiency---Vit D supplementation started
Code Status:� Full
Anticipated Discharge: 24 - 48 hours
Subjective/Interval History
-
Date of Service: August 19, 2023
informed by patient that he is going to the OR
Objective Data
-
Labs:
Laboratory Results
08/19/23
05:09
WBC 4.5 L
Hgb 9.1 L
Hct 27.5 L
Plt Count 152
PT 17.3 H
INR 1.43
Sodium 136
Potassium 3.9
Chloride 109 H
Carbon Dioxide 27
BUN 14
Creatinine 0.7
Glucose 89
Calcium 8.2 L
Vital Signs:
max temp for 24 hours
08/18/23
19:34
Temp 98.5 F
Vital Signs
Temp Pulse Resp BP Pulse Ox
97.9 F 82 16 127/63 94
08/19/23 08:00 08/19/23 08:00 08/19/23 08:00 08/19/23 08:00 08/19/23 08:00
I&O
08/18/23 08/19/23 08/20/23
06:59 06:59 06:59
Intake Total 360 / 360
Output Total 3300 / 3300 950 / 950
Balance -3300 / -3300 -590 / -590
Review of Systems
-
All other systems: Reviewed and negative
Physical Exam
-
General: Well Developed, Well Nourished and No Apparent Distress
HEENT: Normocephalic and Atraumatic; Negative Oxygen
Respiratory: Clear to Auscultation; Negative Wheezes or Rhonchi
Cardiac: Regular Rhythm, S1/S2 and Murmur
GI: Soft, Nontender, Normal Bowel Sounds and Distended
Genito-urinary: Clear Urine and Supra Pubic Tube
Musculoskeletal: No Clubbing, No Cyanosis and No Edema
Neuro: Awake
Psych: Calm
[2023-08-19] MEDS: LIORESAL 15 MG PO ×2 (09:06→12:13)
[2023-08-19] MEDS: PROTONIX 40 MG PO (09:06)
[2023-08-19] MEDS: VITAMIN D3 (cholecalciferol) 25 MCG PO (09:07)
[2023-08-19] MEDS: LIPITOR 40 MG PO (09:07)
--- NOTE | 2023-08-19 10:08 | W.PN.URO.CBU ---
Today's Communication / Plan
-
OR today
Assessment / Plan
-
78M with sudden onset bleeding from urethra after routine suprapubic tube change
- Given timing and nature of bleeding, it is most likely the catheter balloon was inflated within the prostate during suprapubic tube change, causing poor drainage and subsequent bleeding when it was repositioned
- Hold warfarin
- NPO for OR today - cystoscopy and fulguration
Diagnosis
-
Date of Service: August 19, 2023
-
Patient Diagnosis:
Urethral bleeding
Chronic urinary retention
Post Op Day:
Subjective
-
some episodes of mild bleeding yesterday
Objective
-
Vital Signs
Temp Pulse Resp BP Pulse Ox
97.9 F 82 16 127/63 94
08/19/23 08:00 08/19/23 08:00 08/19/23 08:00 08/19/23 08:00 08/19/23 08:00
Intake and Output
08/18/23 08/19/23 08/20/23
06:59 06:59 06:59
Intake Total 360 / 360
Output Total 3300 / 3300 950 / 950
Balance -3300 / -3300 -590 / -590
Intake:
Oral fluids 360 / 360
Output:
Urine, [place] 850 / 850
Suprapubic output 2450 / 2450 950 / 950
Laboratory Results
08/19/23 05:09
08/19/23 05:09
Physical Exam
-
General - well developed, well nourished, no acute distress
Chest - clear
Abdomen - soft, non-tender
- no acute urethral bleed
Skin - warm & dry with no rash
Neuro - AOx3, no motor deficits
--- NOTE | 2023-08-19 17:24 | W.IMMPOSTOP ---
Surgical Immed Post Op Note
-
Primary Surgeon: Peffer
Assisting Surgeon: none
Pre-op Diagnosis: Urethral trauma, hematuria
Post-op Diagnosis: same
Procedure Performed: cystoscopy, fulguration of traumatic urethral bleeding
Anesthesia Type:
Specimen / Cultures:
Estimated Blood Loss:
Complications:
Operative Findings:
large defect in bulbar urethra from catheter balloon trauma
spongy tissue not very amenable to fulguration, but reasonable hemostasis obtained
22Fr [place] placed per urethral
Stenotic SPT tract revised and dilated, 18Fr [place] catheter placed
[2023-08-19] MEDS: LIORESAL 20 MG PO (18:43)
[2023-08-19] MEDS: DUONEB 3 ML INH (19:50)
[2023-08-19] MEDS: TYLENOL 650 MG PO (20:11)
[2023-08-19] MEDS: FLOMAX 0.400000000000000022 MG PO (20:11)
[2023-08-20] VITALS (7 sets, daily range): BP systolic 94–117; BP diastolic 51–59
[2023-08-20 05:41] LABS: Hematocrit 28.9 % (39.0-52.0); Hemoglobin 9.5 g/dL (13.0-18.0); Mean Corp Hgb Conc. 32.9 g/dL (33.0-37.0); Mean Corpuscular Volume 85.3 fL (80.0-94.0); Mean Platelet Volume 10.6 fL (7.4-10.4); Platelet Count 172 10^3/uL (130-400); Red Blood Cell Count 3.39 10^6/uL (4.70-6.10); Red Cell Dist. Width 15.2 % (11.5-14.5); White Blood Cell Count 7.2 10^3/uL (4.8-10.8)
[2023-08-20 05:53] LABS: INR 1.33; PT 16.6 Sec (11.4-14.6)
[2023-08-20 06:14] LABS: Blood Urea Nitrogen 21 mg/dl (9-20); Calcium 8.5 mg/dl (8.4-10.2); Carbon Dioxide 29 mmol/L (22-30); Chloride 104 mmol/L (98-107); Estimated Creatinine Clearance 70 ml/min; Glucose 141 mg/dl (70-99); Magnesium 2.2 mg/dl (1.6-2.3); Phosphorus 3.2 mg/dl (2.5-4.5); Potassium 4.6 mmol/L (3.5-5.1); Sodium 139 mmol/L (135-145); eGFR > 60.00
--- NOTE | 2023-08-20 06:25 | PTCARENOTE ---
Gauze around pt's penis and pad underneath pt changed this morning - soiled with small amount of bright red bloody drainage. Suprapubic catheter draining bloody urine overnight, free of clots, put out approx 400mL. Gauze around suprapubic catheter
site clean dry and intact, dried bloody drainage noted around catheter site. Pt offers complaints of tenderness around catheter site, relieved with Tylenol (refer to MAR).
Plan of care ongoing.
[2023-08-20] MEDS: TYLENOL 650 MG PO (06:33)
[2023-08-20] MEDS: DUONEB 3 ML INH ×2 (07:38→20:40)
[2023-08-20] MEDS: PULMICORT 0.5 MG INH ×2 (07:39→20:40)
[2023-08-20] MEDS: LIORESAL 15 MG PO ×2 (08:59→12:57)
[2023-08-20] MEDS: PROTONIX 40 MG PO (08:59)
[2023-08-20] MEDS: VITAMIN D3 (cholecalciferol) 25 MCG PO (08:59)
[2023-08-20] MEDS: LIPITOR 40 MG PO (08:59)
--- NOTE | 2023-08-20 09:23 | W.PN.URO.CBU ---
Today's Communication / Plan
-
Hold warfarin
Observation
Outpatient follow up for catheter management
Assessment / Plan
-
78M with sudden onset bleeding from urethra after routine suprapubic tube change
- now s/p OR 08/19 for cystoscopy, fulguration of bulbar urethral trauma, suprpubic tube revision
- Spongy urethral tissue was not very amenable to fulguration, however hemostasis was improved. Suspect he will continue to have some intermittent urethral bleeding while he is healing.
- Hold warfarin for additional 2 weeks if risk profile is acceptable
- Outpatient follow up for urethral catheter removal in about 1 week
- Maintain suprapubic tube
Diagnosis
-
Date of Service: August 20, 2023
-
Patient Diagnosis:
Urethral bleeding
Chronic urinary retention
Post Op Day: s/p cystoscopy, fulguration, SPT revision 08/19
Subjective
-
minimal urethral bleeding overnight
no pain
Objective
-
Vital Signs
Temp Pulse Resp BP Pulse Ox
99.0 F 80 16 104/54 98
08/20/23 07:00 08/20/23 07:39 08/20/23 07:39 08/20/23 07:00 08/20/23 07:39
Intake and Output
08/19/23 08/20/23 08/21/23
06:59 06:59 06:59
Intake Total 360 / 360 355 / 355
Output Total 950 / 950 1829 / 1829
Balance -590 / -590 -1475 / -1475
Intake:
Oral fluids 360 / 360 255 / 255
IV fluids (Total) 100 / 100
Norm 100 / 100
Output:
Suprapubic output 950 / 950 1829 / 1829
Laboratory Results
08/20/23 05:09
08/20/23 05:09
Physical Exam
-
General - well developed, well nourished, no acute distress
Chest - clear bilaterally
Abdomen - soft, non-tender
Genitalia - minimal blood per meatus, SPT in place, light pink urine
Skin - warm & dry with no rash
Neuro - AOx3, no motor deficits
Extremities - no clubbing
--- NOTE | 2023-08-20 10:16 | PN.CDI ---
CDI
- -
CDI:
Physician Documentation Request
Admit Date: 08/16/23 01:55
Dear Doctor Cristina
Patient presented to ED ' complaining of syncope episode, and hematuria. He has a suprapubic catheter but was bleeding from his penis.'
Warfarin was held.
Urology states 'large defect in bulbar urethra from catheter balloon trauma'
Please clarify if a relationship exist between these conditions:
Yes, bleeding is exacerbated by warfarin.
No, bleeding is not exacerbated by warfarin.
Unable to determine
Use of terms such as suspected, likely, concern for, or probable (associated with a specific diagnosis that is being evaluated, monitored, or treated as if it exists) are acceptable and can be coded in the inpatient setting, when documented at the
time of discharge.
Thank you,
Brenda Adames RN, BSN
CDI Specialist
tiger text
Please use your independent medical judgment in providing your response.
--- NOTE | 2023-08-20 12:31 | W.PN.HOSP.TC ---
Today's Communication/Plan
-
cont off coumadin
PT/OT
Assessment / Plan
Assessment / Plan
pt is a 78 year old male
Acute Blood Loss Anemia due to Urethral Bleeding with Chronic Suprapubic Catheter and subsequent hypotension--has not needed blood transfusion so far--HGB did drop from 12.6 (admission) to 9.5 (currently)--apprec urology--coumadin on hold--did well
with ambulation but had bleeding with having a bowel movement--s/p OR 08/19/23--will re-order PT/OT
History of DVT/PE in 2016 /DVT Prophylaxis-�- Holding warfarin acutely given bleeding as noted above- Daily INR�- SCDs for now for prophylaxis--patient has no history of stroke, no history of atrial fibrillation, no recurrent episodes of
DVT/pulmonary embolism, no history of genetic issues such as antiphospholipid antibody syndrome, Antithrombin III deficiency, protein C or S deficiency, etc.--- therefore, I do not believe he needs long-term anticoagulation at this poin-- Urology
would like to have him off of Coumadin at least 2 weeks--but as I believe, I do not think he needs long-term treatment
COPD without Acute Exacerbation�- Stable.� Continue budesonide BID�- DuoNebs PRN- Azithromycin discontinued, per patient/family no longer taking
Ulcerative Colitis- Stable.� Most recent flare was about 2 months ago- Not apparently on any maintenance medications-- Follow for any new symptoms.
Cervical Spinal Stenosis/Ambulatory Dysfunction�- Stable--Chronic gait dysfunction secondary to prior cord compression/spasticity/etc--Continue usual baclofen regimen-- PT/OT evaluations once hemodynamically stable.
Iron deficiency with Anemia of chronic disease--IV iron supplementation
Hypocalcemia--monitor and replete as necessary
Vit D deficiency---Vit D supplementation started
Code Status:� Full
Anticipated Discharge: Within 24 hours
Subjective/Interval History
-
Date of Service: August 20, 2023
pt doing well postop
Objective Data
-
Labs:
Laboratory Results
08/20/23
05:09
WBC 7.2
Hgb 9.5 L
Hct 28.9 L
Plt Count 172
PT 16.6 H
INR 1.33
Sodium 139
Potassium 4.6
Chloride 104
Carbon Dioxide 29
BUN 21 H
Creatinine 0.8
Glucose 141 H
Calcium 8.5
Vital Signs:
max temp for 24 hours
08/20/23
11:00
Temp 99.4 F
Vital Signs
Temp Pulse Resp BP Pulse Ox
99.4 F 56 18 94/51 94
08/20/23 11:00 08/20/23 11:00 08/20/23 11:00 08/20/23 11:00 08/20/23 11:00
I&O
08/19/23 08/20/23 08/21/23
06:59 06:59 06:59
Intake Total 360 / 360 355 / 355
Output Total 950 / 950 1830 / 1830
Balance -590 / -590 -1475 / -1475
Review of Systems
-
All other systems: Reviewed and negative
Physical Exam
-
General: Well Developed, Well Nourished and No Apparent Distress
HEENT: Normocephalic and Atraumatic
Respiratory: Clear to Auscultation; Negative Wheezes or Rhonchi
Cardiac: Regular Rhythm and S1/S2; Negative Murmur
GI: Soft, Nontender, Nondistended and Normal Bowel Sounds
Genito-urinary: Supra Pubic Tube (chronic)
Musculoskeletal: No Clubbing, No Cyanosis and No Edema
Neuro: Awake
--- NOTE | 2023-08-20 12:33 | CM ---
Patient seen at bedside with physician. Yelena VN to follow at discharge. CM updated daughter and she is requiring patient be seen at bedside with PT/OT prior to discharge. CM will review with physician. Patient needs to be able to get in and out
of bed. CM will continue to follow for discharge planning needs.
Plan; home with Yelena vs SNF
[2023-08-20] MEDS: LIORESAL 20 MG PO (18:02)
[2023-08-20] MEDS: FLOMAX 0.400000000000000022 MG PO (21:12)
[2023-08-21 03:45] VITALS: BP 93/51
[2023-08-21 05:44] LABS: Hematocrit 26.8 % (39.0-52.0); Hemoglobin 8.9 g/dL (13.0-18.0); Mean Corp Hgb Conc. 33.2 g/dL (33.0-37.0); Mean Corpuscular Hgb 28.3 pg (27.0-31.0); Mean Corpuscular Volume 85.4 fL (80.0-94.0); Mean Platelet Volume 10.3 fL (7.4-10.4); Platelet Count 160 10^3/uL (130-400); Red Blood Cell Count 3.14 10^6/uL (4.70-6.10); Red Cell Dist. Width 15.8 % (11.5-14.5); White Blood Cell Count 6.5 10^3/uL (4.8-10.8)
[2023-08-21 06:13] LABS: Blood Urea Nitrogen 21 mg/dl (9-20); Calcium 8.5 mg/dl (8.4-10.2); Carbon Dioxide 29 mmol/L (22-30); Chloride 105 mmol/L (98-107); Estimated Creatinine Clearance 80 ml/min; Glucose 96 mg/dl (70-99); Magnesium 2.1 mg/dl (1.6-2.3); Phosphorus 3.2 mg/dl (2.5-4.5); Potassium 4.1 mmol/L (3.5-5.1); Sodium 137 mmol/L (135-145); eGFR > 60.00
[2023-08-21 06:18] LABS: PT 16.2 Sec (11.4-14.6)
[2023-08-21 07:00] VITALS: BP 123/66
[2023-08-21] MEDS: PULMICORT 0.5 MG INH (07:28)
[2023-08-21] MEDS: DUONEB 3 ML INH (07:29)
[2023-08-21] MEDS: LIPITOR 40 MG PO (07:46)
[2023-08-21] MEDS: VITAMIN D3 (cholecalciferol) 25 MCG PO (07:46)
[2023-08-21] MEDS: LIORESAL 15 MG PO (07:46)
[2023-08-21] MEDS: PROTONIX 40 MG PO (07:47)
[2023-08-21 11:00] VITALS: BP 117/63
--- NOTE | 2023-08-21 11:27 | W.PN.HOSP.TC ---
Today's Communication/Plan
-
d/c
Assessment / Plan
Assessment / Plan
pt is a 78 year old male
Acute Blood Loss Anemia due to Urethral Bleeding with Chronic Suprapubic Catheter and subsequent hypotension exacerbated by coumadin--has not needed blood transfusion so far--HGB did drop from 12.6 (admission) to 9.5 (currently)--apprec
urology--coumadin on hold--did well with ambulation but had bleeding with having a bowel movement--s/p OR 08/19/23
History of DVT/PE in 2016 /DVT Prophylaxis-�- Holding warfarin acutely given bleeding as noted above- Daily INR�- SCDs for now for prophylaxis--patient has no history of stroke, no history of atrial fibrillation, no recurrent episodes of
DVT/pulmonary embolism, no history of genetic issues such as antiphospholipid antibody syndrome, Antithrombin III deficiency, protein C or S deficiency, etc.--- therefore, I do not believe he needs long-term anticoagulation at this poin-- Urology
would like to have him off of Coumadin at least 2 weeks--but as I believe, I do not think he needs long-term treatment
COPD without Acute Exacerbation�- Stable.� Continue budesonide BID�- DuoNebs PRN- Azithromycin discontinued, per patient/family no longer taking
Ulcerative Colitis- Stable.� Most recent flare was about 2 months ago- Not apparently on any maintenance medications-- Follow for any new symptoms.
Cervical Spinal Stenosis/Ambulatory Dysfunction�- Stable--Chronic gait dysfunction secondary to prior cord compression/spasticity/etc--Continue usual baclofen regimen-- PT/OT evaluations once hemodynamically stable.
Iron deficiency with Anemia of chronic disease--IV iron supplementation
Hypocalcemia--monitor and replete as necessary
Vit D deficiency---Vit D supplementation started
Code Status:� Full
Anticipated Discharge: Today
Subjective/Interval History
-
Date of Service: August 21, 2023
pt doing well--ok for d/c
Objective Data
-
Labs:
Laboratory Results
08/21/23
05:19
WBC 6.5
Hgb 8.9 L
Hct 26.8 L
Plt Count 160
PT 16.2 H
INR 1.30
Sodium 137
Potassium 4.1
Chloride 105
Carbon Dioxide 29
BUN 21 H
Creatinine 0.7
Glucose 96
Calcium 8.5
Vital Signs:
max temp for 24 hours
08/20/23
11:00
Temp 99.4 F
Vital Signs
Temp Pulse Resp BP Pulse Ox
98.0 F 71 16 123/66 95
08/21/23 07:00 08/21/23 07:29 08/21/23 07:29 08/21/23 07:00 08/21/23 07:29
I&O
08/20/23 08/21/23 08/22/23
06:59 06:59 06:59
Intake Total 355 / 355 360 / 360
Output Total 1830 / 1830 1800 / 1800
Balance -1475 / -1475 -1440 / -1440
Review of Systems
-
All other systems: Reviewed and negative
Physical Exam
-
General: Well Developed, Well Nourished and No Apparent Distress
HEENT: Normocephalic and Atraumatic
Respiratory: Clear to Auscultation; Negative Wheezes or Rhonchi
Cardiac: Regular Rhythm and S1/S2; Negative Murmur
GI: Soft, Nontender, Nondistended and Normal Bowel Sounds
Genito-urinary: Clear Urine and Supra Pubic Tube
Musculoskeletal: No Clubbing, No Cyanosis and No Edema
Neuro: Awake
Psych: Calm
--- NOTE | 2023-08-21 11:46 | CM ---
Patient seen at bedside, Patient daughter to transport patient home. Yelena to follow at discharge. CM will review IMM with patient to sign. CM will continue to follow for discharge planning needs.
Plan; home with yelena to follow
[2023-08-21] MEDS: MIRALAX 17 GRAMS PO (11:57)
--- NOTE | 2023-08-22 07:19 | W.DCSUMMARY ---
Discharge Summary
Discharge Data
Date of Admission: 08/16/23
Date of Discharge: 08/21/23
-
Pending Results: No
Hospital Course
Primary care physician : Leticia Amos
Principal Discharge diagnosis : Acute blood loss anemia due to urethral bleeding with chronic suprapubic catheter exacerbated by Coumadin
Chronic Discharge diagnosis : History of deep venous thrombosis/pulmonary embolism in 2016, chronic obstructive pulmonary disease without exacerbation, ulcerative colitis, cervical spinal stenosis with ambulatory dysfunction, iron deficiency with
anemia of chronic disease, hypocalcemia, vitamin D deficiency
Hospital Course : Patient is a 78-year-old male who complained of bleeding from the urethra. Patient had monthly suprapubic catheter change on the day of admission. VN reported he had bladder spasms during the exchange. Patient's daughter noted
lack of urine output following the procedure and spoke with visiting nurses by phone. Daughter deflated the balloon and then reinflated the balloon at their direction. A singular clot was noted in the tubing followed by return of clear urine.
Shortly thereafter the patient noted blood in his diaper coming from the urethra. Patient came to the emergency department. Workup in the emergency department showed him to have no evidence of bleeding and the patient was discharged home. After
his return home, he stood to go the bathroom and again passed a large amount of blood from the urethra. Patient then became lightheaded and clammy but did not lose consciousness. He returned to the emergency department. On arrival he was more
hypotensive and the patient was admitted.
Problem #1: Acute blood loss anemia due to urethral bleeding along with chronic suprapubic catheter which all were exacerbated by Coumadin. Patient was admitted and seen in consultation by urology. There thought was that given the timing and
nature of the bleeding, catheter balloon was likely inflated within the prostate during the suprapubic tube change causing poor drainage followed by subsequent bleeding. His warfarin was on hold. Patient was placed on bedrest and monitored for
recurrent bleeding. Plans were for the operating room on August 18 but the patient had no further bleeding and they were canceled. Later that evening, patient had a bowel movement and did pass significant amounts of blood from his urethra. He
was made n.p.o. and was taken to the operating room on August 19. Operative findings revealed a large defect in the bulbar urethra from catheter balloon trauma. Reasonable hemostasis was obtained. Patient was watched and followed and did not
have any further bleeding. Recommendations by urology were to continue him off anticoagulation for at least 2 weeks.
In regards to his anticoagulation, patient has a history of deep venous thrombosis and pulmonary embolism in 2016. I spoke with the patient in depth. He denied any history of stroke, atrial fibrillation, recurrent episodes of DVT/pulmonary
embolism, no history of genetic issues or required issues such as antiphospholipid antibody syndrome, Antithrombin III deficiency, protein C or protein S deficiency. Therefore I do not believe that he needs long-term anticoagulation. I did speak
with urology regarding my finding as well as the patient and the patient's daughter. I did however states that if there is something that I am unaware of that his primary care physician knows more about and that long-term anticoagulation is
required; that they should speak with the primary care physician from that standpoint. Otherwise, I have recommended indefinitely stopping his anticoagulation.
Problem #2: All other medical issues. These include History of deep venous thrombosis/pulmonary embolism in 2016, chronic obstructive pulmonary disease without exacerbation, ulcerative colitis, cervical spinal stenosis with ambulatory dysfunction,
iron deficiency with anemia of chronic disease, hypocalcemia, vitamin D deficiency. These medical issues were stable during his hospitalization. Medications were continued as able.
Patient was seen in consultation by physical therapy and Occupational Therapy and is stable for discharge home at this time. If there are any questions regarding this dictation or his hospital stay, please not hesitate to call. Our office number
is [phone].
Time for discharge 31 minutes.
Procedure findings :
Operative Findings:�
large defect in bulbar urethra from catheter balloon trauma
spongy tissue not very amenable to fulguration, but reasonable hemostasis obtained
22Fr [place] placed per urethral
Stenotic SPT tract revised and dilated, 18Fr [place] catheter placed
Discharge Plan
-
Patient Disposition: Home with Home Care
Discharge Diagnosis/Procedures: Acute blood loss anemia due to urethral bleeding from chronic suprapubic catheter and subsequent hypotension, history of deep venous thrombosis/pulmonary embolism, chronic obstructive pulmonary disease without acute
exacerbation, ulcerative colitis, cervical spine stenosis/ambulatory dysfunction, iron deficiency with anemia of chronic disease, hypocalcemia, vitamin D deficiency
Condition: Good
Diet: As tolerated and Regular
Activity: As tolerated
Driving Restrictions: As prior to admission
Bathing Restrictions: None
Other Services: VN, PT and OT
Referrals:
Ankita Amos CRNP [Family Provider] - in less than 1 week
Chris Joe MD [Active] - in two weeks
Prescriptions:
New
cholecalciferol (vitamin D3) 25 mcg (1,000 unit) Tablet
25 mcg PO DAILY Qty: 0 0RF
Continued
atorvastatin 40 mg Tablet
40 mg PO DAILY
albuterol sulfate 2.5 mg /3 mL (0.083 %) Solution For Nebulization
2.5 mg INHALATION BID
baclofen 20 mg Tablet
20 mg PO QPM
tamsulosin 0.4 mg Capsule
0.4 mg PO HS
baclofen 10 mg Tablet
15 mg PO BID@0800,1200
baclofen 10 mg Tablet
10 mg PO HS
pantoprazole 40 mg Tablet,Delayed Release (Dr/Ec)
40 mg PO DAILY
budesonide 0.5 mg/2 mL Suspension For Nebulization
0.5 mg INHALATION BID
Held
warfarin 4 mg Tablet
4 mg PO QPM
Hold Instructions: I do not believe that you need Coumadin/warfarin moving forward--please discuss this with your prescribing doctor
Discontinued
azithromycin 250 mg Tablet
250 mg PO DAILY
Discharge Orders:
Discharge Patient (As Directed); Ordered 08/21/23
Ordered By: Nayana Evans
Discharge Date and Time
Discharge Date/Time: 08/21/23 13:58
== END 2023-08-21 13:58 | disposition home health service (06) | DRG 663 ==
LOC: 3 WEST ACU 01:55
PROVIDERS: Internal Medicine; Student in an Organized Health Care Education/Training Program; ADMITTING PHYSICIAN Hospitalist; ATTENDING PHYSICIAN Internal Medicine; CONSULT PHYSICIAN Urology; EMERGENCY PHYSICIAN Emergency Medicine; FAMILY PHYSICIAN Nurse Practitioner Family
PROC: 0T2BX0Z Change Drainage Device in Bladder, External Approach (ICD-10-PCS; 2023-08-19)
PROC: 0W3R8ZZ Control Bleeding in Genitourinary Tract, Via Natural or Artificial Opening Endoscopic (ICD-10-PCS; 2023-08-19)
DX: T83.83XA Hemorrhage due to genitourinary prosthetic devices, implants and grafts, initial encounter (principal); D62 Acute posthemorrhagic anemia; K51.90 Ulcerative colitis, unspecified, without complications; S37.30XA Unspecified injury of urethra, initial encounter; D68.32 Hemorrhagic disorder due to extrinsic circulating anticoagulants; Z87.891 Personal history of nicotine dependence; N36.8 Other specified disorders of urethra; Z93.59 Other cystostomy status; I95.9 Hypotension, unspecified; J44.9 Chronic obstructive pulmonary disease, unspecified; M48.02 Spinal stenosis, cervical region; Y65.8 Other specified misadventures during surgical and medical care; D63.8 Anemia in other chronic diseases classified elsewhere; E83.51 Hypocalcemia; R33.9 Retention of urine, unspecified; Z86.718 Personal history of other venous thrombosis and embolism
CPT/HCPCS: 80048; 80053; 82306; 82728; 83540; 83550; 83735; 84100; 85014; 85018; 85025; 85027; 85610; 86850; 86900; 86901; 90662; 90677; 93005; 94640; 96360; 96361; 97162; 97164; 97166; 99291; C1758; C1769; G0008; G0009; J2916

== ENCOUNTER 2023-09-07 17:04 | Emergency (ER) | payer MEDICARE, OTHER, SELFPAY ==
[2023-09-07 17:12] VITALS: BMI 23.7
[2023-09-07 17:14] VITALS: BP 121/89
[2023-09-07 17:24] VITALS: BP 133/64
[2023-09-07 17:29] LABS: % Basophils 0.3 % (0-2); % Eosinophils 0.3 % (0-6); % Immature Granulocytes 0.4 % (0-0.5); % Lymphocytes 8.1 % (20.5-51.1); % Neutrophils 84.9 % (42.2-75.2); Absolute Immature Granulocytes 0.1 10^3/uL (0-0.05); Absolute Monocytes 0.7 10^3/uL (0.1-0.6); Absolute Neutrophils 10.3 10^3/uL (1.4-6.5); Hematocrit 34.4 % (39.0-52.0); Hemoglobin 11.3 g/dL (13.0-18.0); Mean Corp Hgb Conc. 32.8 g/dL (33.0-37.0); Mean Corpuscular Hgb 27.1 pg (27.0-31.0); Mean Corpuscular Volume 82.5 fL (80.0-94.0); Mean Platelet Volume 9.5 fL (7.4-10.4); Nucleated Red Blood Cells % 0 % (-); Platelet Count 368 10^3/uL (130-400); Red Blood Cell Count 4.17 10^6/uL (4.70-6.10); Red Cell Dist. Width 14.6 % (11.5-14.5); White Blood Cell Count 12.2 10^3/uL (4.8-10.8)
[2023-09-07 17:47] LABS: ALT (SGPT) 21 U/L (0-50); AST (SGOT) 25 U/L (17-59); Alkaline Phosphatase 124 U/L (38-126); Blood Urea Nitrogen 19 mg/dl (9-20); Carbon Dioxide 27 mmol/L (22-30); Chloride 99 mmol/L (98-107); Estimated Creatinine Clearance 81 ml/min; Glucose 116 mg/dl (70-99); Sodium 136 mmol/L (135-145); Total Bilirubin 0.8 mg/dl (0.2-1.3); Total Protein 6.8 g/dl (6.3-8.2); eGFR > 60.00
[2023-09-07 18:00] VITALS: BP 113/58
[2023-09-07] MEDS: MORPHINE SULFATE 2 MG IV (18:12)
[2023-09-07] MEDS: NSS 500 IV (18:12)
[2023-09-07 18:38] LABS: D-Dimer 1.82 ug/mlFEU (0.00-0.50)
--- NOTE | 2023-09-07 18:45 | EDRN ---
D-Dimer came back elevated, provider notified by this RN
[2023-09-07 19:28] VITALS: BP 126/80
[2023-09-07] MEDS: OMNIPAQUE 50 ML PO (19:28)
[2023-09-07] MEDS: ZOFRAN 4 MG IV (19:57)
[2023-09-07 20:00] VITALS: BP 146/73
--- NOTE | 2023-09-07 20:08 | ED.GENMED ---
History of Present Illness
General
Chief Complaint: Abdominal Pain
Source: patient
Exam Limitations: none
Time Seen by Provider: 09/07/23 17:26
Nursing documentation reviewed up to this point in time: agreed with
Travel History
Have you had any contact with someone who has COVID-19?: No
Do you have any symptoms of coronavirus? Fever > 100 degrees, chills, cough, shortness of breath, sore throat, loss of taste or smell, muscle aches, or headache?: No
History of Present Illness
History of Present Illness:
Patient presents ED secondary to sudden onset of abdominal pain starting this afternoon, along with inability to have bowel movements over the past 10 days. Denies fever or chills. Denies trauma. Denies vomiting. Denies diarrhea. Denies recent
change in medications or diet. Abdominal pain described as sharp, diffuse, without any alleviating or exacerbating factors. Patient does have history of IBS, which has caused irregular bowel habits in the past.
Past History
Past History
ED Past Medical History: COPD, Hypercholesterolemia, Other (Pulmonary embolism) and Other (Ulcerative colitis)
ED Past Surgical History: Bowel resection, Orthopedic and Urological
Social History
Tobacco: Non-smoker
Alcohol: None
Drug: None
Personal:
Living: with family
Review of Systems
Review of Systems
Allergies reviewed?: Yes
All Other Systems: ROS reviewed and negative except as documented in HPI and ROS
Constitutional: Reports no symptoms; Denies fever
Respiratory: Reports no symptoms
Cardiac: Reports no symptoms
ABD/GI: Reports abdominal pain and constipated; Denies nausea, vomiting or diarrhea
: Reports no symptoms
Musculoskeletal: Reports no symptoms
Skin: Reports no symptoms
Neurological: Reports no symptoms
Phy Exam
Physical Exam
Physical Exam:
Physical Exam
General: mild distress, not acutely ill. afebrile.
Head: nc/at. eomi
Neck: supple. no meningeal signs.
Heart: s1/s2 regular rate and rhythm, no murmur. equal radial pulses.
Lungs: no acute respiratory distress. clear bilaterally
Abdomen: mild distention noted with diffuse tenderness to palpation.
Neuro: alert and oriented. no focal neurological deficits
Skin: no rash
Psychiatric: well kept. interactive and cooperative
Extremities: no edema. no calf tenderness.
Course
Orders/Labs/Results
Orders:
Orders
09/07/23 17:20
CMP [Comprehensive Metabolic Panel] Urgent
Complete Blood Count/With Diff Urgent
09/07/23 18:04
0.9% Sodium Chloride 500 ml [Nss] 500 ml IV BOLUS
Morphine Sulfate 2 mg IV NOW STA
CR Obstruct Series W/pa Chest Urgent
Comment:
Reason For Exam: abdominal pain w distention
09/07/23 18:11
D-Dimer Urgent
09/07/23 18:58
Iohexol [Omnipaque] See Protocol PO NOW STA
09/07/23 18:59
CT Abd/pel W Iv And Oral Contr Urgent
Comment:
Reason For Exam: abdominal pain w distention
09/07/23 19:53
Ondansetron Injectable [Zofran] 4 mg .ROUTE .STK-MED ONE
09/07/23 19:57
Ondansetron Injectable [Zofran] 4 mg IV NOW STA
09/07/23 21:45
Phosphate Enema [Fleet Phosphate Enema-Adult] 135 ml RECTAL NOW STA
Abnormal Lab Results
09/07/23 09/07/23
17:20 18:11
WBC 12.2 H 10^3/uL
(4.8-10.8)
RBC 4.17 L 10^6/uL
(4.70-6.10)
Hgb 11.3 L g/dL
(13.0-18.0)
Hct 34.4 L %
(39.0-52.0)
MCHC 32.8 L g/dL
(33.0-37.0)
RDW 14.6 H %
(11.5-14.5)
Abs Immat Gran (auto) 0.1 H 10^3/uL
(0-0.05)
Absolute Neuts (auto) 10.3 H 10^3/uL
(1.4-6.5)
Absolute Lymphs (auto) 1.0 L 10^3/uL
(1.2-3.4)
Absolute Monos (auto) 0.7 H 10^3/uL
(0.1-0.6)
Neutrophils % 84.9 H %
(42.2-75.2)
Lymphocytes % 8.1 L %
(20.5-51.1)
D-Dimer 1.82 H ug/mlFEU
(0.00-0.50)
Glucose 116 H mg/dl
(70-99)
09/07/23 17:20
09/07/23 17:20
Vital Signs
Initial and Last Documented VS:
Initial Vital Signs
Temp Pulse Resp BP Pulse Ox
98.2 F 87 18 121/89 98
09/07/23 17:14 09/07/23 17:14 09/07/23 17:14 09/07/23 17:14 09/07/23 17:14
Last Documented Vital Signs
Temp Pulse Resp BP Pulse Ox
98.2 F 87 18 101/54 94
09/07/23 17:14 09/07/23 23:00 09/07/23 23:00 09/07/23 21:00 09/07/23 21:45
MDM/Problems Addressed
MDM/Problems Addressed:
Patient disimpacted and subsequently had spontaneous large volume of soft stool, with significant improvement symptoms. Patient will be discharged home in stable condition, to the care of her daughter, with recommendation to continue bowel regimen
at home along with PCP follow-up as an outpatient.
*Critical Care Note
Total Time (30-74mins, 75-104mins- exclusive of procedures): Not Applicable
ED Attending Note
-
Portions of this chart may have been created with voice recognition software.� Occasional wrong word or��sound alike� substitutions may have occurred due to the inherent limitations of voice recognition software.
Discharge Plan
Departure
Patient Disposition: Home (Routine Discharge)
Date of Disposition: 09/07/23
Time of Disposition: 22:27
Patient with high blood pressure during this ER visit?: Yes
Discharge Problem:
Constipation
Instructions: Constipation, Adult (DC)
Prescriptions:
No Action
atorvastatin 40 mg Tablet
40 mg PO DAILY
albuterol sulfate 2.5 mg /3 mL (0.083 %) Solution For Nebulization
2.5 mg INHALATION BID
warfarin 4 mg Tablet
4 mg PO QPM
Hold Instructions: I do not believe that you need Coumadin/warfarin moving forward--please discuss this with your prescribing doctor
Rx Instructions:
THE PATIENT HAS NOT TAKEN THIS MEDICATION
baclofen 20 mg Tablet
20 mg PO QPM
tamsulosin 0.4 mg Capsule
0.4 mg PO HS
baclofen 10 mg Tablet
15 mg PO BID@0800,1200
baclofen 10 mg Tablet
10 mg PO HS
pantoprazole 40 mg Tablet,Delayed Release (Dr/Ec)
40 mg PO DAILY
budesonide 0.5 mg/2 mL Suspension For Nebulization
0.5 mg INHALATION BID
cholecalciferol (vitamin D3) 25 mcg (1,000 unit) Tablet
25 mcg PO DAILY Qty: 0 0RF
Referrals:
Ankita Amos CRNP [Family Provider] -
Activity Restrictions/Additional Instructions:
As discussed, please follow-up with your primary care physician for further evaluation and treatment.
Interventions
Interventions:
*Risk Screen - Suicide Last Done: 09/07/23 17:08
*General Assessment Last Done: 09/07/23 17:08
*Neglect/Abuse Screening Last Done: 09/07/23 17:08
ED- Fall Risk Assessment Last Done: 09/07/23 17:23
*ED COVID-19 Vaccine History Last Done: 09/07/23 17:12
*Nursing Disposition Last Done: 09/07/23 23:21
KJ-Vzmtis-Frunsjhshz Assessment Last Done: 09/07/23 17:23
Discharge Date and Time
Discharge Date/Time: 09/07/23 23:23
[2023-09-07 21:00] VITALS: BP 101/54
== END 2023-09-07 23:23 | disposition home or self-care (01) ==
LOC: EMR 17:04
PROVIDERS: Emergency Medicine; EMERGENCY PHYSICIAN Emergency Medicine; FAMILY PHYSICIAN Nurse Practitioner Family
DX: K59.00 Constipation, unspecified (principal); R10.9 Unspecified abdominal pain; R03.0 Elevated blood-pressure reading, without diagnosis of hypertension; K58.9 Irritable bowel syndrome, unspecified; J44.9 Chronic obstructive pulmonary disease, unspecified; E78.00 Pure hypercholesterolemia, unspecified; K51.90 Ulcerative colitis, unspecified, without complications; Z79.01 Long term (current) use of anticoagulants; Z86.711 Personal history of pulmonary embolism; Z98.1 Arthrodesis status; Z98.0 Intestinal bypass and anastomosis status
CPT/HCPCS: 99285; 96374; 96375; 96361; 74022; 74177; 80053; 85025; 85379; Q9967

== ENCOUNTER 2025-05-27 10:52 | Inpatient (IN) | payer MEDICARE, SELFPAY ==
[2025-05-26 17:12] VITALS: BP 152/78
--- NOTE | 2025-05-26 17:16 | ED.GENMED ---
History of Present Illness
General
Chief Complaint: Breathing Problem
Time Seen by Provider: 05/26/25 17:09
History of Present Illness
History of Present Illness:
Patient presents to the emergency department with cough, general fatigue and chills. Symptoms have been worsening over the past week. He has a history of COPD, not on home O2. Family with multiple sick contacts after a cruise. No cp. +chills
yesterday
Past History
Past History
ED Past Medical History: COPD, Hypercholesterolemia, Other (Pulmonary embolism) and Other (Ulcerative colitis)
ED Past Surgical History: Bowel resection, Orthopedic and Urological
Social History
Tobacco: Non-smoker
Alcohol: None
Drug: None
Personal:
Living: with family
Phy Exam
Physical Exam
Physical Exam:
GENERAL APPEARANCE: Chronically ill-appearing
EYES lids/conjunctiva normal
EARS/NOSE/THROAT Mucous membranes moist, uvula midline without oral pharyngeal erythema, exudate or swelling
HEAD/NECK normocephalic atraumatic, neck is supple.
RESPIRATORY rhonchorous bilaterally present. Expiratory wheezing bilaterally. Diminished breath sounds on the left
CARDIAC Regular rate and rhythm, no edema.
ABDOMINAL Soft, ND/NT.
MUSCLES/EXTREMITIES chronic venous stasis changes to lower extremities bilaterally
SKIN Warm, pink and dry. No rashes
NEUROLOGICAL Speech is clear and appropriate. Normal level of consciousness. 5/5 strength in all extremities.
PSYCH Normal mood and affect. Judgement/competence is appropriate
Scores
Heart Failure Risk
Heart Failure Risk Score: Not Applicable
Sepsis
Sepsis Screening
Sepsis Assessment: Sepsis
Sepsis Screen
Sepsis Screen: Sepsis
Date: 05/26/25
Time: 22:26
Course
Orders/Labs/Results
Orders:
Orders
05/26/25 Dinner
Regular
At Your Request: Full Participation
05/26/25 17:08
CR Chest - 2 Views Urgent
Comment:
Reason For Exam: respiratory distress
05/26/25 17:09
COVID-19 Antigen Urgent
Source: Nasal Swab
Comprehensive Metabolic Panel Urgent
Influenza A+B Rapid Molecular Urgent
KARISSA Source: Nasal Swab
Specimen Description:
05/26/25 17:10
Complete Blood Count/With Diff Urgent
05/26/25 17:15
Albuterol Nebs [Ventolin Nebules] 2.5 mg INH R NOW STA
Ipratropium/Albuterol Sulfate [Duoneb] 3 ml INH R NOW STA
MethylPREDNISolone PF [Solu-Medrol Pf] 125 mg IV NOW STA
05/26/25 17:18
Lactate Level [Lactic Acid] Urgent
PTT Urgent
Prothrombin Time Urgent
Blood Culture Q30M
KARISSA Source: Blood/Venous
Specimen Description:
Blood Culture Q30M
KARISSA Source: Blood/Venous
Specimen Description:
05/26/25 19:15
Acetaminophen [Tylenol] 1,000 mg PO NOW STA
05/26/25 19:34
Admit/Transfer Patient As Directed
Co-Sign Provider:
Level of Care: Observation services
Assign to:: Medical/Surgical
Physician / Group: Elizabeth
Diagnosis: Influenza A infection
PRN Pain Medication Management As Directed
May give lesser potent ordered pain med per pt: Yes
preference::
Protocol:: Medication orders for pain may be administered in a
manner that supports deferring to patient preference
when the pt is:
- Requesting an ordered lesser potent pain medication.
Least to most potent pain medications are defined
as: acetaminophen < NSAID < tramadol < opioids
(morphine, oxycodone, hydromorphone).
- Requesting a lesser dose of the same medication IF
ORDERED.
- Requesting a less intrusive route of administration
if both routes are prescribed by the provider (PO <
IV).
05/26/25 19:36
Code Status As Directed
Resuscitation Status: Full Code
05/26/25 19:40
Oseltamivir Phosphate [Tamiflu] 75 mg PO NOW STA
05/26/25 20:37
Albuterol Nebs [Ventolin Nebules] 2.5 mg INH R Q3HPRN PRN
Budesonide [Pulmicort] 0.5 mg INH R BID
Guaifenesin [Mucinex] 600 mg PO Q12
Guaifenesin/Dextromethorphan [Robitussin Dm] 5 ml PO Q4HPRN PRN
Mag Hydrox/Al Hydrox/Simeth [Maalox] 15 ml PO QIDPRN PRN
05/26/25 20:37
VTE Contraindication Routine
VTE Mechanical Device Contraindication: Medical Contraindication
Pharmocologic Contraindication: Medical Contraindication
Activity As Directed
Activity Level: Out of Bed-Early Mobility
Catheter-Suprapubic As Directed
Intake/ Output As Directed
Frequency: Per unit guidelines
Vital Signs As Directed
Frequency: Per unit guidelines
Weight As Directed
Frequency: Once
Comment: on admission
O2 Therapy [RESP] Routine
Nasal Cannula Liter Flow: 2 LPM
Titrate/Wean O2 to maintain O2 sat greater than (%): 89
Special Instructions: Wean as tolerated
Pulse Ox/cont/shift [RESP] Routine
Quantity: 1
Special Instructions: notify provider if SPO2 < 91%
Pt Eval And Treat Routine
Activity Level: With Assistance
05/26/25 21:00
Ipratropium/Albuterol Sulfate [Duoneb] 3 ml INH R QID
05/26/25 22:00
Tamsulosin [Flomax] 0.4 mg PO HS
05/26/25 23:30
Acetaminophen [Tylenol] 650 mg PO Q4HPRN PRN
05/27/25 06:00
Basic Metabolic Panel IN AM
Complete Blood Count/No Diff IN AM
Prothrombin Time IN AM
05/27/25 08:00
Atorvastatin [Lipitor] 40 mg PO DAILY
Azithromycin [Zithromax] 250 mg PO DAILY
Baclofen [Lioresal] 15 mg PO BID@0800,1200
Oseltamivir Phosphate [Tamiflu] 75 mg PO BID
Pantoprazole [Protonix] 40 mg PO DAILY
Prednisone [Deltasone] 50 mg PO DAILY
05/27/25 18:00
Baclofen [Lioresal] 20 mg PO QPM
Abnormal Lab Results
05/26/25 05/26/25 05/26/25
17:09 17:10 17:18
WBC 4.0 L 10^3/uL
(4.8-10.8)
Hgb 12.9 L g/dL
(13.0-18.0)
MCH 26.2 L pg
(27.0-31.0)
MCHC 32.7 L g/dL
(33.0-37.0)
RDW 14.9 H %
(11.5-14.5)
Absolute Lymphs (auto) 0.9 L 10^3/uL
(1.2-3.4)
Absolute Monos (auto) 0.7 H 10^3/uL
(0.1-0.6)
Monocytes % 18.7 H %
(1.7-9.3)
PT 31.7 H Sec
(11.4-14.6)
APTT 46.4 H Sec
(23.4-35.0)
Carbon Dioxide 31 H mmol/L
(22-30)
BUN 24 H mg/dl
(9-20)
05/26/25 17:10
05/26/25 17:09
Vital Signs
Initial and Last Documented VS:
Initial Vital Signs
Pulse Resp BP Pulse Ox
97 22 152/78 94
05/26/25 17:12 05/26/25 17:12 05/26/25 17:12 05/26/25 17:12
Last Documented Vital Signs
Temp Pulse Resp BP Pulse Ox
98.3 F 88 16 132/67 91
05/26/25 20:49 05/26/25 21:19 05/26/25 21:19 05/26/25 20:49 05/26/25 21:19
*Pulse Oximetry
Patient hypoxic: no
*Critical Care Note
Total Time (30-74mins, 75-104mins- exclusive of procedures): Not Applicable
ED Attending Note
ED Attending Note
ED Attending Note:
The patient presented with cough and chills and shortness of breath in the setting of influenza A. No antibiotics given as this is a viral infection. He was found to have a COPD exacerbation was treated with nebulizers and intravenous
corticosteroids. Patient continued to wheeze after this treatment and was admitted for further management.
-
Portions of this chart may have been created with voice recognition software.� Occasional wrong word or��sound alike� substitutions may have occurred due to the inherent limitations of voice recognition software.
Discharge Plan
Departure
Patient Disposition: Admit
Date of Disposition: 05/26/25
Time of Disposition: 19:17
Presentation/result/management discussed w/ accepting MD/DO: Hospitalist
Discharge Problem:
Acute exacerbation of chronic obstructive pulmonary disease, Influenza A
Interventions
Interventions:
*Risk Screen - Suicide Last Done: 05/26/25 17:12
*General Assessment Last Done: 05/26/25 17:12
*Neglect/Abuse Screening Last Done: 05/26/25 17:12
*ED COVID-19 Vaccine History Last Done: 05/26/25 17:12
*ED Influenza Vaccine History Last Done: 05/26/25 17:12
[facility] Fall Risk Assessment Tool Last Done: 05/26/25 17:12
*Nursing Disposition Last Done: 05/26/25 20:33
ED- Cardiac Assessment Last Done: 05/26/25 17:12
ED- Pulmonary Assessment Last Done: 05/26/25 17:12
Discharge Date and Time
Discharge Date/Time: 05/26/25 20:33
[2025-05-26 17:19] LABS: Hematocrit 39.5 % (39.0-52.0); Hemoglobin 12.9 g/dL (13.0-18.0); Mean Corp Hgb Conc. 32.7 g/dL (33.0-37.0); Mean Corpuscular Volume 80.1 fL (80.0-94.0); Nucleated Red Blood Cells % 0 % (-); Platelet Count 154 10^3/uL (130-400); Red Cell Dist. Width 14.9 % (11.5-14.5)
[2025-05-26] MEDS: DUONEB 3 ML INH ×2 (17:27→21:16)
[2025-05-26] MEDS: VENTOLIN NEBULES 2.5 MG INH (17:27)
[2025-05-26] MEDS: SOLU-MEDROL PF 125 MG IV (17:27)
[2025-05-26 17:39] LABS: ALT (SGPT) 21 U/L (0-50); AST (SGOT) 32 U/L (17-59); Albumin 3.6 g/dl (3.5-5.0); Alkaline Phosphatase 105 U/L (38-126); Blood Urea Nitrogen 24 mg/dl (9-20); Calcium 8.5 mg/dl (8.4-10.2); Carbon Dioxide 31 mmol/L (22-30); Chloride 103 mmol/L (98-107); Estimated Creatinine Clearance 69 ml/min; Glucose 87 mg/dl (70-99); Potassium 4.0 mmol/L (3.5-5.1); Sodium 136 mmol/L (135-145); Total Protein 6.6 g/dl (6.3-8.2); eGFR > 60.00
[2025-05-26 17:42] LABS: COVID-19 Antigen Negative (Negative)
[2025-05-26 17:44] LABS: INR 3.13; PT 31.7 Sec (11.4-14.6)
[2025-05-26 17:45] LABS: APTT 46.4 Sec (23.4-35.0)
[2025-05-26 18:00] VITALS: BP 140/59
[2025-05-26 19:00] VITALS: BP 132/83
[2025-05-26 19:14] VITALS: BP 132/83
--- NOTE | 2025-05-26 19:19 | HPS.HSE ---
Family Physician
-
Family Physician: NOT KNOW UNKNOWN - PT DOES
Chief Complaint
-
Shortness of breath
History of Present Illness
This is a 80-year-old male with past medical history significant for COPD not on home O2, hyperlipidemia, prior history of VTE on anticoagulation with Coumadin, history of ulcerative colitis, chronic urinary retention s/p suprapubic catheter
presents to the emergency department with 1 week of worsening shortness of breath.
Patient reports he felt symptoms began about 2 days ago. Family returned from a cruise about 1 week ago and since then there has been increase in number of individuals in the family with symptoms of flulike illness. Patient stated that they got it
1 after the other and he started getting symptoms stated about 2 days ago. He reports that he had fatigue, cloudy sensorium, weakness and shortness of breath. He also reports copious productive cough.
He reports chills starting yesterday. He has not had any chest pain. He denies any orthopnea or PND but reports chronic lower extremity swelling that has been present for about a year and a half. He denies any nausea vomiting or diarrhea. He
denies any dulce fevers at home.
In the emergency department he was febrile with a temp of 99.6, blood pressure was 130/80 with a pulse of 102 and he was satting 96% on room air.
CBC was unremarkable. Electrolyte BUN/creatinine were all in the normal range. Chest x-ray showed no acute infiltrate.
COVID test was negative, influenza test was positive for influenza A. INR was elevated 3.13.
Medical History
Past Medical History
Past Medical History: Reports Other
Additional Past Medical History:
COPD
History of DVT / PE
Cervical Spinal Stenosis
Ambulatory Dysfunction
Chronic Suprapubic Catheter
Ulcerative Colitis
Past Surgical History: Reports Other
Additional Past Surgical History:
Partial Bowel Resection
Cervical Spinal Fusion
SPC Placement
Social History
Tobacco: Former Smoker (Quit smoking 6 years ago. > 50 pack years total use.)
Alcohol: Occasional
Drug: None
Family History
Family History: Other (Father: Colon Cancer)
Allergies / Home Medications
Allergies reflects when Allergies were last updated in [facility].
Home Medications with original date entered in [facility]
Allergy/Medication List:
Allergies
Allergy/AdvReac Type Severity Reaction Status Date / Time
No Known Allergies Allergy Unverified 04/29/21 11:02
Home Medications
albuterol sulfate 2.5 mg/3 mL (0.083 %) solution for nebulization 2.5 mg inhalation BID 08/16/23
atorvastatin 40 mg tablet 40 mg PO DAILY 08/16/23
azithromycin 250 mg tablet 250 mg PO DAILY 08/16/23
baclofen 10 mg tablet 10 mg PO HS 08/16/23
baclofen 10 mg tablet 15 mg PO BID@0800,1200 08/16/23
baclofen 20 mg tablet 20 mg PO QPM 08/16/23
budesonide 0.5 mg/2 mL suspension for nebulization 0.5 mg inhalation BID 08/16/23
pantoprazole 40 mg tablet,delayed release 40 mg PO DAILY 08/16/23
tamsulosin 0.4 mg capsule 0.4 mg PO HS 08/16/23
warfarin 4 mg tablet 4 mg PO DAILY 08/16/23
Review of Systems
-
Constitutional: Reports No Symptoms
EENT: Reports No Symptoms
Respiratory: Reports Cough and Trouble Breathing
Cardiac: Reports No Symptoms
Abdomen/GI: Reports No Symptoms
: Reports No Symptoms
Musculoskeletal: Reports No Symptoms
Skin: Reports No Symptoms
Neurological: Reports No Symptoms
Endocrine: Reports No Symptoms
Hematologic/Lymphatic: Reports No Symptoms
Psych: Reports No Symptoms
Physical Exam
Vital Signs
Vital Signs
Temp Pulse Resp BP Pulse Ox
99.6 F 102 24 132/83 91
05/26/25 19:14 05/26/25 19:15 05/26/25 19:15 05/26/25 19:14 05/26/25 19:15
Physical Exam
General: Well Developed, Well Nourished and Comfortable
HEENT: Moist mucous membranes and PERRLA; No Oxygen
Respiratory: Decreased Breath Sounds
Cardiac: S1/S2 and Regular Rhythm; No Murmur
GI: Soft, Non Tender, Non Distended and Normal Bowel Sounds
Genito-urinary: Suprapubic Tube (connie colored urine) and Other
Musculoskeletal: No Clubbing, No Cyanosis, Edema, Left Lower Extremity (2+ pedal) and Edema, Right Lower Extremity (2+ pedal)
Neuro: AO x 3 and Nonfocal/grossly intact
Psych: Calm
Laboratory Results
-
05/26/25 17:10
05/26/25 17:09
Laboratory Results
PT 31.7 Sec (11.4-14.6) H 05/26/25 17:18
INR 3.13 05/26/25 17:18
APTT 46.4 Sec (23.4-35.0) H 05/26/25 17:18
Lactic Acid 1.0 mmol/L (0.7-2.0) 05/26/25 17:18
Total Bilirubin 0.5 mg/dl (0.2-1.3) 05/26/25 17:09
AST 32 U/L (17-59) 05/26/25 17:09
ALT 21 U/L (0-50) 05/26/25 17:09
Alkaline Phosphatase 105 U/L (38-126) 05/26/25 17:09
Data Reviewed
-
Diagnostic Radiology: Image Personally Visualized and interpreted
Lab Data: Labs Reviewed by me
Old Records: Reviewed
Impression/Plan
-
IMPRESSION:
80-year-old with past medical history significant for COPD not on home O2, pulmonary embolism on anticoagulation with warfarin, chronic urinary retention status post appropriate cath, presents to the emergency department with cough and shortness of
breath as well as chills and found to have influenza A positive infection as well as increased work of breathing consistent with COPD exacerbation.
PLAN:
Influenza A infection with COPD exacerbation
� Admit to [facility] observation
� Will start on Tamiflu
- patient on chronic azithromycin for UTI ppx, will continue
� No acute infiltrates or leukocytosis, will hold off on antibiotics at this time
� Will start treatment for COPD exacerbation with prednisone taper, continue home budesonide and [id number] nebs
� Oxygen as needed to maintain sats greater than 90%
COPD Exacerbation - Mild to moderate
- steroid taper as above
- nebs and prn albuterol
- continue azithromycin
PE
- on coumadin 4 daily with slightly supratherapeutic INR, hold coumadin this evening and re-eval INR
Urinary retention s/p SPC
- catheter in place draining clear urine, no signs of active infection
- continue ppx
- continue tamsulosin
DVT PPX - on coumadin
code status - Full Code
[2025-05-26] MEDS: TYLENOL 1000 MG PO (19:20)
[2025-05-26] MEDS: TAMIFLU 75 MG PO (19:49)
[2025-05-26 20:49] VITALS: BP 132/67; BMI 22.8
[2025-05-26] MEDS: PULMICORT 0.5 MG INH (21:16)
[2025-05-26] MEDS: MUCINEX 600 MG PO (21:53)
[2025-05-26] MEDS: FLOMAX 0.4 MG PO (21:53)
[2025-05-26 22:50] VITALS: BP 100/64
--- NOTE | 2025-05-27 04:36 | PTCARENOTE ---
Pt admitted from ED, arrived via stretcher. AAOx3, denied pain. Pt [place] with hearing aids at bedside. Afebrile, VSS. Suprapubic catheter draining connie urine. Bed alarm in place. Bed in lowest position and call fonseca within reach. Pt placed on
droplet precautions.
[2025-05-27 06:35] LABS: INR 3.35; PT 33.5 Sec (11.4-14.6)
[2025-05-27 06:42] LABS: Blood Urea Nitrogen 25 mg/dl (9-20); Calcium 8.1 mg/dl (8.4-10.2); Carbon Dioxide 29 mmol/L (22-30); Chloride 105 mmol/L (98-107); Estimated Creatinine Clearance 69 ml/min; Glucose 148 mg/dl (70-99); Potassium 4.2 mmol/L (3.5-5.1); Sodium 136 mmol/L (135-145); eGFR > 60.00
[2025-05-27 06:43] LABS: Hematocrit 37.6 % (39.0-52.0); Hemoglobin 12.4 g/dL (13.0-18.0); Mean Corp Hgb Conc. 33.0 g/dL (33.0-37.0); Mean Corpuscular Volume 80.5 fL (80.0-94.0); Platelet Count 151 10^3/uL (130-400); Red Cell Dist. Width 14.7 % (11.5-14.5)
[2025-05-27 07:24] VITALS: BP 136/82
[2025-05-27] MEDS: LIPITOR 40 MG PO (07:43)
[2025-05-27] MEDS: LIORESAL 15 MG PO ×2 (07:43→12:00)
[2025-05-27] MEDS: MUCINEX 600 MG PO ×2 (07:43→20:28)
[2025-05-27] MEDS: PROTONIX 40 MG PO (07:43)
[2025-05-27] MEDS: ZITHROMAX 250 MG PO (07:43)
[2025-05-27] MEDS: TAMIFLU 75 MG PO ×2 (07:43→20:28)
[2025-05-27] MEDS: DELTASONE 50 MG PO (07:43)
[2025-05-27] MEDS: HYDROPHOR 1 APPLIC TOPICAL (07:44)
[2025-05-27] MEDS: PULMICORT 0.5 MG INH ×2 (08:05→18:35)
[2025-05-27] MEDS: DUONEB 3 ML INH ×2 (08:05→18:35)
--- NOTE | 2025-05-27 10:54 | W.PN.HOSP.TC ---
Today's Communication/Plan
-
Tamiflu open
Steroid taper.
Home O2 assessment prior to discharge per
Reduce warfarin dose and follow INR in the morning.
Physical therapy evaluation
Attempted to contact patient's daughter for the update with no response over the phone.
Assessment / Plan
Assessment / Plan
Impression
80-year-old with past medical history significant for COPD not on home O2, pulmonary embolism on anticoagulation with warfarin, chronic urinary retention status post appropriate cath, presents to the emergency department with cough and shortness of
breath as well as chills and found to have influenza A positive infection as well as increased work of breathing consistent with COPD exacerbation.
Influenza bronchitis.
COPD exacerbation.
Conditions prior to admission
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
History of pulmonary embolism on anticoagulation with warfarin per
Ulcerative colitis currently not on maintenance.
Chronic bladder outlet obstruction status post suprapubic catheter.
Plan
Influenza A bronchitis
COPD exacerbation secondary to influenza A infection.
Stable respiratory status with no requirements for oxygen supplementation. Currently saturating 97% on room air at rest.
Exam with mild rhonchi. Reported wheezing upon presentation.
Initiated on Tamiflu.
Mild nonproductive cough. Afebrile since admission. No strong evidence for superimposing bacterial infection.
Continue Zithromax at maintenance.
Continue Pulmicort.
Continue JAX
Prednisone taper 50 mg to 40 mg
Mucolytics
History of pulmonary embolism
On warfarin
INR 3.35 point
Reduce Coumadin dose by 50% to 2 mg
Daily INR
Ulcerative colitis
Currently not on any maintenance.
Reports no GI symptoms
Chronic bladder outlet obstruction with suprapubic tube in place.
Anticipated Discharge: 24 - 48 hours
Subjective/Interval History
-
Date of Service: May 27, 2025
Objective Data
-
Labs:
Laboratory Results
05/27/25
06:06
WBC 3.8 L
Hgb 12.4 L
Hct 37.6 L
Plt Count 151
PT 33.5 H
INR 3.35
Sodium 136
Potassium 4.2
Chloride 105
Carbon Dioxide 29
BUN 25 H
Creatinine 0.8
Glucose 148 H
Calcium 8.1 L
Vital Signs:
Vital Signs
Temp Pulse Resp BP Pulse Ox
98.1 F 90 18 136/82 93
05/27/25 07:24 05/27/25 08:07 05/27/25 08:07 05/27/25 07:24 05/27/25 08:07
I&O
05/26/25 05/27/25 05/28/25
06:59 06:59 06:59
Output Total 300 / 300
Balance -300 / -300
Physical Exam
-
General: Well Developed and No Apparent Distress
HEENT: Normocephalic, Atraumatic and Moist Mucous Membranes
Respiratory: Rhonchi; Negative Wheezes
Cardiac: Regular Rhythm and S1/S2; Negative Murmur, Rub or Gallop
GI: Soft, Nontender, Nondistended and Normal Bowel Sounds; Negative Organomegaly
Rectal: Deferred by Provider
Musculoskeletal: No Clubbing, No Cyanosis and No Edema
Skin: Negative Rash
Neuro: Nonfocal/Grossly Intact
[2025-05-27 11:20] VITALS: BP 115/71; PULSE 88; O2SAT 94
[2025-05-27 15:04] VITALS: BP 138/80
[2025-05-27] MEDS: LIORESAL 20 MG PO (17:49)
[2025-05-27] MEDS: FLOMAX 0.4 MG PO (21:11)
[2025-05-27 23:55] VITALS: BP 107/64
[2025-05-28] MEDS: DUONEB 3 ML INH ×3 (07:12→17:59)
[2025-05-28] MEDS: PULMICORT 0.5 MG INH ×2 (07:12→17:58)
[2025-05-28] MEDS: LIORESAL 15 MG PO ×2 (07:36→12:17)
[2025-05-28] MEDS: TAMIFLU 75 MG PO ×2 (07:36→21:11)
[2025-05-28] MEDS: LIPITOR 40 MG PO (07:36)
[2025-05-28] MEDS: DELTASONE 40 MG PO (07:39)
[2025-05-28] MEDS: MUCINEX 600 MG PO ×2 (07:52→21:11)
[2025-05-28] MEDS: PROTONIX 40 MG PO (07:52)
[2025-05-28] MEDS: ZITHROMAX 250 MG PO (07:56)
[2025-05-28 08:41] VITALS: BP 118/66
[2025-05-28 11:37] LABS: INR 2.36; PT 26.0 Sec (11.4-14.6)
[2025-05-28 11:42] LABS: Hematocrit 40.4 % (39.0-52.0); Hemoglobin 13.2 g/dL (13.0-18.0); Mean Corp Hgb Conc. 32.7 g/dL (33.0-37.0); Mean Corpuscular Volume 81.8 fL (80.0-94.0); Nucleated Red Blood Cells % 0 % (-); Platelet Count 170 10^3/uL (130-400); Red Cell Dist. Width 14.7 % (11.5-14.5)
[2025-05-28 12:10] LABS: Blood Urea Nitrogen 20 mg/dl (9-20); Calcium 8.4 mg/dl (8.4-10.2); Carbon Dioxide 29 mmol/L (22-30); Chloride 100 mmol/L (98-107); Estimated Creatinine Clearance 69 ml/min; Glucose 79 mg/dl (70-99); Potassium 3.8 mmol/L (3.5-5.1); Sodium 137 mmol/L (135-145); eGFR > 60.00
--- NOTE | 2025-05-28 12:14 | W.PN.HOSP.TC ---
Today's Communication/Plan
-
Monitor vital signs see plan
Hypoxic today, wean oxygen as tolerated
Transition prednisone to Decadron
Continue with azithromycin
DuoNebs standing and as needed
Monitor INR, continue Coumadin
Discussed with daughter
Assessment / Plan
Assessment / Plan
Impression
80-year-old with past medical history significant for COPD not on home O2, pulmonary embolism on anticoagulation with warfarin, chronic urinary retention status post appropriate cath, presents to the emergency department with cough and shortness of
breath as well as chills and found to have influenza A positive infection as well as increased work of breathing consistent with COPD exacerbation.
Influenza bronchitis.
COPD exacerbation.
Conditions prior to admission
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
History of pulmonary embolism on anticoagulation with warfarin per
Ulcerative colitis currently not on maintenance.
Chronic bladder outlet obstruction status post suprapubic catheter.
Plan
Influenza A bronchitis
COPD exacerbation secondary to influenza A infection.
Stable respiratory status with no requirements for oxygen supplementation. Currently saturating 97% on room air at rest.
Exam with mild rhonchi. Reported wheezing upon presentation.
Initiated on Tamiflu.
Mild nonproductive cough. Afebrile since admission. No strong evidence for superimposing bacterial infection.
Continue Zithromax at maintenance.
Continue Pulmicort.
Continue JAX
Profusely wheezing today, rhonchi. Transition steroids to IV Decadron. Make DuoNebs 4 times daily standing and as needed. Discussed with daughter
Also acute hypoxic respiratory insufficiency, put on 2 L. Wean oxygen as tolerated
Mucolytics
History of pulmonary embolism
cw warfarin
INR 2.3
cwCoumadin dose 2 mg; at home 4mg
Daily INR
Ulcerative colitis
Currently not on any maintenance.
Reports no GI symptoms
Chronic bladder outlet obstruction with suprapubic tube in place.
General: Well Developed and No Apparent Distress
HEENT: Normocephalic, Atraumatic and Moist Mucous Membranes
Respiratory: Rhonchi;+ wheezing
Cardiac: Regular Rhythm and S1/S2; Negative Murmur, Rub or Gallop
GI: Soft, Nontender, Nondistended and Normal Bowel Sounds
Musculoskeletal: No Edema
Neuro: Nonfocal/Grossly Intact
I spent a total of 52 minutes with the patient or on the floor. More than 50% of this time involved counseling and coordination of care.
Anticipated Discharge: 24 - 48 hours
Subjective/Interval History
-
Date of Service: May 28, 2025
has sob
Objective Data
-
Labs:
Laboratory Results
05/28/25
10:47
WBC 9.3
Hgb 13.2
Hct 40.4
Plt Count 170
PT 26.0 H
INR 2.36
Sodium 137
Potassium 3.8
Chloride 100
Carbon Dioxide 29
BUN 20
Creatinine 0.8
Glucose 79
Calcium 8.4
Vital Signs:
Vital Signs
Temp Pulse Resp BP Pulse Ox
97.7 F 107 18 118/66 88
05/28/25 08:41 05/28/25 08:41 05/28/25 08:41 05/28/25 08:41 05/28/25 08:41
I&O
05/27/25 05/28/25 05/29/25
06:59 06:59 06:59
Intake Total 780 / 780
Output Total 300 / 300 1050 / 1050
Balance -300 / -300 -270 / -270
[2025-05-28 12:45] VITALS: BP 146/77
[2025-05-28 14:21] VITALS: BP 132/74
[2025-05-28 16:34] VITALS: BP 119/62
[2025-05-28] MEDS: LIORESAL 20 MG PO (17:33)
[2025-05-28] MEDS: COUMADIN 2 MG PO (17:33)
[2025-05-28] MEDS: FLOMAX 0.4 MG PO (21:12)
[2025-05-28] MEDS: DECADRON 4 MG IV (21:13)
[2025-05-28 23:00] VITALS: BP 102/65
[2025-05-29 05:56] LABS: Hematocrit 35.9 % (39.0-52.0); Hemoglobin 11.8 g/dL (13.0-18.0); Mean Corp Hgb Conc. 32.9 g/dL (33.0-37.0); Mean Corpuscular Volume 80.9 fL (80.0-94.0); Nucleated Red Blood Cells % 0 % (-); Platelet Count 145 10^3/uL (130-400); Red Cell Dist. Width 14.8 % (11.5-14.5)
[2025-05-29 06:07] LABS: INR 2.71; PT 29.0 Sec (11.4-14.6)
[2025-05-29 06:28] LABS: Blood Urea Nitrogen 19 mg/dl (9-20); Calcium 8.4 mg/dl (8.4-10.2); Carbon Dioxide 29 mmol/L (22-30); Chloride 104 mmol/L (98-107); Estimated Creatinine Clearance 69 ml/min; Glucose 122 mg/dl (70-99); Potassium 4.5 mmol/L (3.5-5.1); Sodium 136 mmol/L (135-145); eGFR > 60.00
[2025-05-29] MEDS: PULMICORT 0.5 MG INH ×2 (07:40→19:54)
[2025-05-29] MEDS: DUONEB 3 ML INH ×4 (07:40→19:54)
[2025-05-29] MEDS: ZITHROMAX 250 MG PO (07:53)
[2025-05-29] MEDS: MUCINEX 600 MG PO ×2 (07:53→20:40)
[2025-05-29] MEDS: PROTONIX 40 MG PO (07:53)
[2025-05-29] MEDS: LIPITOR 40 MG PO (07:53)
[2025-05-29] MEDS: DECADRON 4 MG IV ×2 (07:53→20:39)
[2025-05-29] MEDS: LIORESAL 15 MG PO ×2 (07:54→12:08)
[2025-05-29] MEDS: TAMIFLU 75 MG PO ×2 (07:55→20:40)
[2025-05-29 08:13] VITALS: BP 134/77
--- NOTE | 2025-05-29 10:55 | W.PN.HOSP.TC ---
Today's Communication/Plan
-
Monitor vitals
See plan
Wean oxygen as tolerated
Continue with the IV steroids today
Monitor INR
He will need home O2 evaluation prior to discharge
Assessment / Plan
Assessment / Plan
Impression
80-year-old with past medical history significant for COPD not on home O2, pulmonary embolism on anticoagulation with warfarin, chronic urinary retention status post appropriate cath, presents to the emergency department with cough and shortness of
breath as well as chills and found to have influenza A positive infection as well as increased work of breathing consistent with COPD exacerbation.
Influenza bronchitis.
COPD exacerbation.
Conditions prior to admission
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
History of pulmonary embolism on anticoagulation with warfarin per
Ulcerative colitis currently not on maintenance.
Chronic bladder outlet obstruction status post suprapubic catheter.
Plan
Influenza A bronchitis
COPD exacerbation secondary to influenza A infection.
Currently on 2 L nasal cannula, dropped to 87% yesterday on room air. Wean oxygen as tolerated. Will need home O2 evaluation prior to discharge
Exam with mild rhonchi. Wheezing is better this morning
Initiated on Tamiflu.
Mild nonproductive cough. Afebrile since admission. No strong evidence for superimposing bacterial infection.
Continue Zithromax at maintenance.
Continue Pulmicort.
Continue JAX
Continue with IV Decadron today. DuoNebs 4 times daily standing and as needed. Discussed with daughter
Also acute hypoxic respiratory insufficiency, put on 2 L. Wean oxygen as tolerated
Mucolytics
History of pulmonary embolism
cw warfarin
INR 2.7
cwCoumadin dose 2 mg; at home 4mg
Daily INR
Ulcerative colitis
Currently not on any maintenance.
Reports no GI symptoms
Chronic bladder outlet obstruction with suprapubic tube in place.
Discussed with daughter 05/28
General: Well Developed and No Apparent Distress
HEENT: Normocephalic, Atraumatic and Moist Mucous Membranes
Respiratory: Rhonchi;+ wheezing
Cardiac: Regular Rhythm and S1/S2; Negative Murmur, Rub or Gallop
GI: Soft, Nontender, Nondistended and Normal Bowel Sounds
Musculoskeletal: No Edema
Neuro: Nonfocal/Grossly Intact
I spent a total of 51 minutes with the patient or on the floor. More than 50% of this time involved counseling and coordination of care.
Anticipated Discharge: 24 - 48 hours
Subjective/Interval History
-
Date of Service: May 29, 2025
Denies pain
Objective Data
-
Labs:
Laboratory Results
05/29/25
05:33
WBC 8.3
Hgb 11.8 L
Hct 35.9 L
Plt Count 145
PT 29.0 H
INR 2.71
Sodium 136
Potassium 4.5
Chloride 104
Carbon Dioxide 29
BUN 19
Creatinine 0.8
Glucose 122 H
Calcium 8.4
Vital Signs:
Vital Signs
Temp Pulse Resp BP Pulse Ox
98.1 F 96 18 134/77 92
05/29/25 08:13 05/29/25 08:13 05/29/25 08:13 05/29/25 08:13 05/29/25 08:13
I&O
05/28/25 05/29/25 05/30/25
06:59 06:59 06:59
Intake Total 780 / 780 420 / 420
Output Total 1050 / 1050 1350 / 1350
Balance -270 / -270 -1350 / -1350 420 / 420
[2025-05-29 16:29] VITALS: BP 117/66
[2025-05-29] MEDS: COUMADIN 2 MG PO (17:42)
[2025-05-29] MEDS: LIORESAL 20 MG PO (17:42)
[2025-05-29] MEDS: FLOMAX 0.4 MG PO (21:48)
[2025-05-29 23:00] VITALS: BP 114/71
--- NOTE | 2025-05-29 23:52 | PTCARENOTE ---
Pt. was asleep.
[2025-05-30] MEDS: PULMICORT 0.5 MG INH ×2 (07:10→20:25)
[2025-05-30] MEDS: DUONEB 3 ML INH ×4 (07:10→20:25)
[2025-05-30 07:25] LABS: Hematocrit 34.2 % (39.0-52.0); Hemoglobin 11.3 g/dL (13.0-18.0); Mean Corp Hgb Conc. 33.0 g/dL (33.0-37.0); Mean Corpuscular Volume 80.5 fL (80.0-94.0); Nucleated Red Blood Cells % 0 % (-); Platelet Count 135 10^3/uL (130-400); Red Cell Dist. Width 14.9 % (11.5-14.5)
[2025-05-30 07:33] LABS: INR 2.16; PT 24.2 Sec (11.4-14.6)
[2025-05-30 08:13] VITALS: BP 133/73
[2025-05-30] MEDS: MUCINEX 600 MG PO ×2 (08:25→21:37)
[2025-05-30] MEDS: LIPITOR 40 MG PO (08:25)
[2025-05-30] MEDS: PROTONIX 40 MG PO (08:25)
[2025-05-30] MEDS: ZITHROMAX 250 MG PO (08:25)
[2025-05-30] MEDS: TAMIFLU 75 MG PO ×2 (08:26→21:37)
[2025-05-30] MEDS: LIORESAL 15 MG PO ×2 (08:26→12:01)
[2025-05-30] MEDS: DECADRON 4 MG IV ×2 (08:26→21:38)
--- NOTE | 2025-05-30 09:44 | CM ---
Addendum entered by Meghana Han 05/30/25 14:30:
respiratory performed home oxygen test - patient does not qualify for home oxygen
Original Note:
patient chart reviewed
PT rec Home health
spoke with Lili at [facility]-patient current with them
referral entered in [facility]
PLAN: home with [facility] when stable
[facility] fax #: [phone]
[2025-05-30 11:05] VITALS: BP 138/67; PULSE 83; O2SAT 95
--- NOTE | 2025-05-30 14:43 | W.PN.HOSP.TC ---
Today's Communication/Plan
-
Subjectively dyspneic
oxygen requirements improved with 90% on ambulation with no requirements for supplemental oxygen.
Continue IV Decadron with plan to transition to oral prednisone tomorrow
Patient's daughter updated over the phone
Assessment / Plan
Assessment / Plan
Impression
80-year-old with past medical history significant for COPD not on home O2, pulmonary embolism on anticoagulation with warfarin, chronic urinary retention status post appropriate cath, presents to the emergency department with cough and shortness of
breath as well as chills and found to have influenza A positive infection as well as increased work of breathing consistent with COPD exacerbation.
Influenza bronchitis.
COPD exacerbation.
Conditions prior to admission
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
History of pulmonary embolism on anticoagulation with warfarin per
Ulcerative colitis currently not on maintenance.
Chronic bladder outlet obstruction status post suprapubic catheter.
Plan
Influenza A bronchitis
COPD exacerbation secondary to influenza A infection.
Currently on 2 L nasal cannula, dropped to 87% yesterday on room air. Wean oxygen as tolerated. Will need home O2 evaluation prior to discharge
Exam with mild rhonchi. Wheezing is better this morning
Initiated on Tamiflu.
Mild nonproductive cough. Afebrile since admission. No strong evidence for superimposing bacterial infection.
Continue Zithromax at maintenance.
Continue Pulmicort.
Continue JAX
Continue mucolytic's
Continue with IV Decadron today. DuoNebs 4 times daily standing and as needed. Discussed with daughter
Oxygen requirements improved and currently 90% on ambulation with no requirements for supplemental oxygen, although remains subjectively dyspneic.
History of pulmonary embolism
cw warfarin
INR 2.7
cwCoumadin dose 2 mg; at home 4mg
Daily INR
Ulcerative colitis
Currently not on any maintenance.
Reports no GI symptoms
Chronic bladder outlet obstruction with suprapubic tube in place.
Anticipated Discharge: 24 - 48 hours
Subjective/Interval History
-
Date of Service: May 30, 2025
Objective Data
-
Labs:
Laboratory Results
05/30/25
06:44
WBC 5.2
Hgb 11.3 L
Hct 34.2 L
Plt Count 135
PT 24.2 H
INR 2.16
Vital Signs:
Vital Signs
Temp Pulse Resp BP Pulse Ox
97.8 F 81 16 133/73 96
05/30/25 08:13 05/30/25 11:05 05/30/25 11:05 05/30/25 08:13 05/30/25 11:05
I&O
05/29/25 05/30/25 05/31/25
06:59 06:59 06:59
Intake Total 1800 / 1800
Output Total 1350 / 1350 1750 / 1750
Balance -1350 / -1350 50 / 50
Physical Exam
-
General: Well Developed and No Apparent Distress
HEENT: Normocephalic, Atraumatic and Moist Mucous Membranes
Respiratory: Rhonchi; Negative Wheezes
Cardiac: Regular Rhythm and S1/S2; Negative Murmur, Rub or Gallop
GI: Soft, Nontender, Nondistended and Normal Bowel Sounds; Negative Organomegaly
Rectal: Deferred by Provider
Musculoskeletal: No Clubbing, No Cyanosis and No Edema
Skin: Negative Rash
Neuro: Nonfocal/Grossly Intact
[2025-05-30 15:00] VITALS: BP 136/62
[2025-05-30] MEDS: COUMADIN 4 MG PO (17:01)
[2025-05-30] MEDS: LIORESAL 20 MG PO (17:03)
[2025-05-30] MEDS: FLOMAX 0.4 MG PO (21:38)
[2025-05-30 23:10] VITALS: BP 126/78
[2025-05-31 07:30] VITALS: BP 146/78
[2025-05-31] MEDS: PULMICORT 0.5 MG INH (08:09)
[2025-05-31] MEDS: DUONEB 3 ML INH ×2 (08:09→11:20)
[2025-05-31] MEDS: LIORESAL 15 MG PO ×2 (08:56→12:07)
[2025-05-31] MEDS: DECADRON 4 MG IV (08:57)
[2025-05-31] MEDS: LIPITOR 40 MG PO (08:57)
[2025-05-31] MEDS: ZITHROMAX 250 MG PO (08:57)
[2025-05-31] MEDS: PROTONIX 40 MG PO (08:57)
[2025-05-31] MEDS: MUCINEX 600 MG PO (08:57)
[2025-05-31] MEDS: TAMIFLU 75 MG PO (08:57)
[2025-05-31] MEDS: FLUSH (NSS) 2 FLUSH IV (08:58)
--- NOTE | 2025-05-31 12:28 | CM ---
Addendum entered by Meghana Han 05/31/25 13:12:
daughter to transport
Addendum entered by Meghana Han 05/31/25 12:59:
discharge today
Updated [facility]
IMM explained & signed. In chart
Original Note:
patient chart reviewed
referral in [facility] for [facility]
patient confirmed current with [facility]
PLAN: home with [facility] when stable
[facility] fax #: [phone]
--- NOTE | 2025-05-31 12:47 | W.DS.TRANS ---
DC Summary - Supervisor Loading
-
Discharge Instructions:
Discharge Diagnosis/Procedures Influenza bronchitis.
COPD exacerbation.
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
History of pulmonary embolism on anticoagulation
with warfarin per
Ulcerative colitis currently not on maintenance.
Chronic bladder outlet obstruction status post
suprapubic catheter.
Diet Regular
Instructions:
Stand-Alone Forms:
Changes to Home Medications: Yes
Discharge Medications:
DC Medications w/original date entered in [employer]
albuterol sulfate 2.5 mg/3 mL (0.083 %) solution for nebulization 2.5 mg inhalation BID Lung/Breathing Issues 08/16/23
atorvastatin 40 mg tablet 40 mg PO DAILY High Cholesterol 08/16/23
baclofen 10 mg tablet 10 mg PO HS Muscle Spasms 08/16/23
baclofen 10 mg tablet 15 mg PO BID@0800,1200 Muscle Spasms 08/16/23
baclofen 20 mg tablet 20 mg PO QPM Muscle Spasms 08/16/23
budesonide 0.5 mg/2 mL suspension for nebulization 0.5 mg inhalation BID Lung/Breathing Issues 08/16/23
pantoprazole 40 mg tablet,delayed release 40 mg PO DAILY GERD 08/16/23
tamsulosin 0.4 mg capsule 0.4 mg PO HS Urinary Issue 08/16/23
warfarin 4 mg tablet 4 mg PO QPM Blood Clot Prevention/Tx 08/16/23
cholecalciferol (vitamin D3) 25 mcg (1,000 unit) tablet 25 mcg PO DAILY Supplement #0 tabs 08/21/23
azithromycin 250 mg PO DAILY 05/26/25
guaifenesin 600 mg tablet, extended release 12 hr 600 mg PO Q12 #30 tabs 05/31/25
methylprednisolone 4 mg tablets in a dose pack (Medrol (Marin)) 4 mg PO DAILY #21 ea 05/31/25
oseltamivir 75 mg capsule 75 mg PO BID #2 caps 05/31/25
Home Medication Changes
Steroid taper
Pending Results: No
[2025-05-31 14:00] VITALS: BP 156/82
[2025-05-31] MEDS: FLUZONE HIGH-DOSE 2025-26 0.5 ML IM (14:01)
== END 2025-05-31 14:33 | disposition home health service (06) | DRG 194 ==
LOC: 3 WEST ACU 10:52
PROVIDERS: Internal Medicine; ADMITTING PHYSICIAN Internal Medicine; ATTENDING PHYSICIAN Internal Medicine; EMERGENCY PHYSICIAN Emergency Medicine
PROC: 3E02340 Introduction of Influenza Vaccine into Muscle, Percutaneous Approach (ICD-10-PCS; 2025-05-31)
DX: J10.1 Influenza due to other identified influenza virus with other respiratory manifestations (principal); J44.1 Chronic obstructive pulmonary disease with (acute) exacerbation; K51.90 Ulcerative colitis, unspecified, without complications; M48.02 Spinal stenosis, cervical region; R09.02 Hypoxemia; R79.1 Abnormal coagulation profile; E78.5 Hyperlipidemia, unspecified; R26.2 Difficulty in walking, not elsewhere classified; Z11.52 Encounter for screening for COVID-19; Z79.899 Other long term (current) drug therapy; Z79.01 Long term (current) use of anticoagulants; Z86.711 Personal history of pulmonary embolism; Z86.718 Personal history of other venous thrombosis and embolism; Z87.891 Personal history of nicotine dependence
CPT/HCPCS: 71046; 80048; 80053; 83605; 85025; 85027; 85610; 85730; 87040; 87502; 87811; 90662; 94640; 96374; 97116; 97163; 99285; G0008